=== PATIENT | female | born 1945 | race Hispanic/Latino ===

== ENCOUNTER 2018-10-17 11:31 | Inpatient (IN) | payer OTHER ==
[~2018-10-17] VITALS: Ht 162.6 cm; Wt 73.0 kg
[~2018-10-17 11:31] MED LIST: FENOFIBRATE145 MG PO; LEVOTHYROXINE75 MCG PO; METOPROLOL TART25 MG PO; NEURONTIN600 MG PO; NEXIUM40 MG PO; OXYBUTYNIN CHLOR5 MG PO; OXYCONTIN10 MG PO
--- OUTSIDE RECORDS SUMMARY | 2018-10-17 11:34 | XMS REPORT | Clinical Summary ---
Author Author GILBERTO [facility] Address Unknown Phone Unavailable Care Team Providers Care Termite Technician Name Role Phone Patrick Wu MD PCP Unavailable Allergies No Known Allergies Medications End Date Status Medication Sig Dispensed Refills Start Date Active metoprolol (LOPRESSOR) 50 Take 25 mg by 0 MG tabletIndications: mouth daily. hypertension Pt takes 1/4 pill daily Active gabapentin (NEURONTIN) Take 300 mg 0 100 MG by mouth 2 capsuleIndications: (two) times Neuropathic Pain daily. Active levothyroxine (SYNTHROID, Take 50 mcg 0 LEVOTHROID) 50 MCG by mouth tabletIndications: daily. hypothyroidism Active oxybutynin (DITROPAN XL) Take 10 mg by 0 10 MG 24 hr tablet mouth daily. Active fluticasone (FLONASE) 50 1 spray by 0 mcg/actuation nasal spray Nasal route daily. Active esomeprazole (NEXIUM) 40 Take 40 mg by 0 MG capsule mouth daily. Active lidocaine (LIDODERM) 5 Place 1 patch 0 %(700 mg/patch) patch onto the skin daily Remove & Discard patch within 12 hours or as directed by MD . Active anastrozole (ARIMIDEX) 1 Take 1 mg by 0 mg tablet mouth daily. Active buPROPion (WELLBUTRIN XL) Take 150 mg 0 150 MG 24 hr tablet by mouth daily. Active desloratadine (CLARINEX) Take 5 mg by 0 5 mg tablet mouth daily. Active diclofenac 1 % Gel Apply 0 topically 4 (four) times daily. Active ranitidine (ZANTAC) 150 Take 150 mg 0 MG capsule by mouth 2 (two) times daily. Active rOPINIRole (REQUIP) 0.25 Take 0.25 mg 0 MG tablet by mouth 3 (three) times daily. Active simvastatin (ZOCOR) 20 MG Take 20 mg by 0 tablet mouth nightly. Active temazepam (RESTORIL) 15 Take 15 mg by 0 mg capsule mouth every night as needed for Sleep. Active tiZANidine (ZANAFLEX) 4 Take 4 mg by 0 MG tablet mouth every 6 (six) hours as needed. Active docusate sodium (COLACE) Take 1 60 capsule 0 100 MG capsule capsule (100 6 mg total) by mouth 2 (two) times daily. 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 Last Filed Vital Signs Not on file Plan of Treatment Health Maintenance Due Date Last Done Comments INFLUENZA VACCINE 11/07/2017 Results Not on fileafter 10/16/2017 Insurance Payer Benefit Subscriber ID Type Phone Address Plan / Group [facility] xxxxxxxxx MEDICARE MGD CARE MEDICARE HMO Advance Directives For more information, please contact: [facility] [address] [place] [address] Date Inactivated Comments Code Status Date Activated 06/25/2015 2:14 PM Full Code 06/25/2015 6:45 AM This code status was determined by: Patient 03/17/2015 7:54 AM Full Code 03/13/2015 11:08 AM This code status was determined by: Patient
--- OUTSIDE RECORDS SUMMARY | 2018-10-17 11:34 | XMS REPORT | Clinical Summary ---
Author Author [facility] Organization [facility] Address Unknown Phone Unavailable Care Team Providers Care Director Surgical Name Role Phone Unknown, Phys PCP Unavailable Allergies No Known Allergies Medications End Date Status Medication Sig Dispensed Refills Start Date Active metoprolol succinate XL Take 25 mg by 0 (TOPROL-XL) 25 MG 24 hr mouth every tablet morning. Active ammonium lactate Apply 0 (AMLACTIN) 12 % cream topically 2 (two) times a day. Active anastrozole (ARIMIDEX) 1 Take 1 mg by 0 mg chemo tablet mouth daily. Active buPROPion SR (WELLBUTRIN Take 150 mg 0 SR) 150 MG 12 hr tablet by mouth daily. Active clotrimazole-betamethason Apply 0 e (LOTRISONE) cream topically 2 (two) times a day. Active desloratadine (CLARINEX) Take 5 mg by 0 5 mg tablet mouth daily. Active diclofenac (VOLTAREN) 1 % Apply 0 gel topically 2 (two) times a day as needed. Active esomeprazole (NexIUM) 40 Take 40 mg by 0 MG capsule mouth daily before breakfast. Active gabapentin (NEURONTIN) Take 600 mg 0 600 MG tablet by mouth 3 (three) times a day. Active ketoconazole (NIZORAL) 2 Apply 0 % cream topically daily. Active levothyroxine (SYNTHROID, Take 88 mcg 0 LEVOTHROID) 88 MCG tablet by mouth every morning. Active lidocaine (LIDODERM) 5 % Place 1 patch 0 on the skin daily. Remove & Discard patch within 12 hours or as directed by MD Active rOPINIRole (REQUIP) 0.25 Take 0.5 mg 0 MG tablet by mouth nightly. Active simvastatin (ZOCOR) 20 MG Take 20 mg by 0 tablet mouth nightly. Active temazepam (RESTORIL) 15 Take 30 mg by 0 mg capsule mouth nightly as needed for sleep. Active tiZANidine (ZANAFLEX) 4 Take 4 mg by 0 MG tablet mouth every 6 (six) hours as needed for muscle spasms. Active Problems Problem Noted Date Renal mass 12/24/2015 Social History Date Tobacco Use Types Packs/Day Years Used Never Smoker Drinks/Week oz/Week Comments Alcohol Use No Sex Assigned at Date Recorded Not on file Industry Job Start Date Occupation Not on file Not on file Not on file Travel End Travel History Travel Start No recent travel history available. Last Filed Vital Signs Not on file Plan of Treatment Health Maintenance Due Date Last Done Comments BREAST CANCER SCREENING 1994 COLONOSCOPY SCREENING 1994 SHINGLES VACCINES (#1) 1994 INFLUENZA VACCINE 09/07/2018 10/10/2015, 03/24/2015, 10/02/2014, Additional history exists 65+ PNEUMOCOCCAL VACCINE Completed 12/12/2014, 10/03/2013 Results Not on fileafter 10/16/2017 Insurance Type Payer Benefit Subscriber ID Effective Phone Address Plan / Dates Group HMO [employer] xxxxxxxxx 2015-P [facility] resent Medicaid MEDICAID MEDICAID xxxxxxxxx [id number] resent Advance Directives For more information, please contact: [phone] Patient Associate Producer Explanation Type Date Recorded Advance Directives, Living Will and Medical Power of Price Changer Date Inactivated Comments Code Status Date Activated 12/25/2015 3:19 PM Full Code 12/24/2015 4:44 PM Code Status decision reached by: Patient
--- OUTSIDE RECORDS SUMMARY | 2018-10-17 11:35 | XMS REPORT | Encounter Summary ---
Author Organization Unknown Address [address] [place] [address] Phone [phone] Care Team Providers Care Human Performance Technologist Name Role Phone Dr. Johnny Rodriguez 3 [phone] Freddie [facility] 109 [phone] Reason for Visit lab follow-up Instructions 1. Vitamin D deficiency Vitamin D2 50,000 unit capsule 2. Hypothyroidism 3. Insomnia temazepam 15 mg capsule 4. Body mass index 30+ - obesity aprenda acerca del peso saludable - [learning about healthy weight] ndice de masa corporal: instrucciones de cuidado - [body mass index: care instructions] Discussion Note: None recorded. Plan of Care Reminders Provider Appointments None recorded. Lab None recorded. Referral None recorded. Procedures None recorded. Surgeries None recorded. Imaging None recorded. Medications Name Start Date anastrozole 1 mg tablet Take 1 tablet every day by oral route as directed for 30 days. bupropion HCl SR 150 mg tablet,12 hr sustained-release Take 1 tablet every day by oral route for 90 days. diclofenac 1 % topical gel Apply 1 g twice a day by topical route as needed. esomeprazole magnesium 40 mg capsule,delayed release TAKE ONE CAPSULE BY MOUTH EVERY DAY fenofibrate nanocrystallized 145 mg tablet Take 1 tablet every day by oral route for 90 days. fluticasone propionate 50 mcg/actuation nasal spray,suspension SHAKE LIQUID AND USE 1 SPRAY IN EACH NOSTRIL TWICE DAILY FOR 14 DAYS DIRECTED gabapentin 600 mg tablet Take 1 tablet 3 times a day by oral route as directed for 90 days. levothyroxine 88 mcg tablet Take 1 tablet every day by oral route for 90 days. lidocaine 5 % topical patch APPLY 1 PATCH(S) TOPICALLY TWICE A DAY NEEDED meloxicam 15 mg tablet Take 1 tablet every day by oral route as needed for 30 days. metoprolol succinate ER 25 mg tablet,extended release 24 hr Take 1 tablet every day by oral route for 90 days. oxybutynin chloride ER 10 mg tablet,extended release 24 hr Take 1 tablet every day by oral route. ProAir HFA 90 mcg/actuation aerosol inhaler Inhale 2 puffs every 6-8 hours by inhalation route as needed for 10 days. ropinirole 0.25 mg tablet Take 2 tablets every day by oral route in the evening for 30 days. simvastatin 20 mg tablet TAKE 1 TABLET BY MOUTH EVERY DAY temazepam 15 mg capsule TAKE 1 CAPSULE BY MOUTH NEEDED AT BEDTIME Tessalon Perles 100 mg capsule Take 1 capsule 3 times a day by oral route as needed for 10 days. triamcinolone acetonide 0.5 % topical ointment APPLY A THIN LAYER TO THE AFFECTED AREA(S) BY TOPICAL ROUTE 2 TIMES PER DAY FOR UP TO 2 WEEKS Tylenol-Codeine #3 300 mg-30 mg tablet Take 1 tablet twice a day by oral route as needed for 10 days. Vitamin D2 50,000 unit capsule Take 1 capsule every week by oral route as directed for 56 days. Medications Administered None recorded. Vitals Height Weight BMI Blood Pressure 5 ft 0.6 in 160 lbs 30.6 kg/m2 138/88 mm[Hg] Lab Results Date Name Specimen Result Interpretation Description Value Range Status Address 04/27/2018 Hepatitis C Virus RNA, Quant, PCR, Serum or Plasma Normal Hepatitis C Antibody non-reactive non-reactive [facility]: [address] [place] [address] Normal Signal to Cut-off 0.01 <1.00 [facility]: [address] [place], [place] [address]y linus [address] 04/27/2018 CBC W/ Auto Diff Wbc 4.69 x10*3/L 3.98-10.04 x10*3/L [facility]: [address] [place] [address] Rbc 4.09 10*12/L 3.93-5.22 10*12/L [facility]: [facility] Jennifer linus [address] Hemoglobin 12.10 g/dL 11.20-15.70 g/dL [facility]: [address] [place] [address] Hematocrit 37.4 % 34.1-44.9 % [facility]: [address] [place] [address] Mcv 91.4 fL 80.0-100.0 fL [facility]: [address] [place] [address], [place] Mch 29.6 pg 25.6-32.2 pg [facility]: [address] [place] Mchc 32.4 g/dL 32.2-35.5 g/dL [facility]: [address] [facility] RDW-SD 51.5 fL 36.4-46.3 fL [facility]: [address] [place] Platelet Count 218.0 k/uL 182.0-369.0 k/uL [facility]: [address] [facility] Mpv 11.6 fL 7.5-11.5 fL [facility]: [address] [place] Neut% 42.5 % 34.0-71.1 % [facility]: [address] [place] Lymph% 40.7 % 19.3-51.7 % [facility]: [address] [facility] Mon% 15.1 % 4.7-12.5 % [facility]: [address] [place] Eos% 1.3 % 0.7-5.8 % [facility]: [address] [place] Baso% 0.4 % 0.1-1.2 % [facility]: [address] [place] Neut# 2.0 x10*3/L 1.6-6.1 x10*3/L [facility] [address] [facility]# 1.9 x10*3/L 1.2-3.7 x10*3/L [facility]: [address], [place] Mon# 0.7 x10*3/L 0.2-0.9 x10*3/L [facility]: [address], [place] Eos# 0.06 x10*3/L 0.04-0.36 x10*3/L [facility] [address] [facility] Baso# 0.02 x10*3/L 0.01-0.08 x10*3/L [facility] [address] [facility] 04/27/2018 CMP, Serum or Plasma Alt 24 U/L 0-55 U/L [facility]: [address] Ast 21 U/L 5-34 U/L [facility]: [address] [place] [address] Bun 16.2 mg/dL 9.8-20.1 mg/dL [facility]: [address] [place] [address], [place] Alk Phos 91 unit/L 40-150 unit/L [facility]: [address] [place] [address] High Glucose 103 mg/dL 70-99 mg/dL [facility]: [address] Albumin 3.9 g/dL 3.5-5.0 g/dL [facility]: [address] Creatinine 0.82 mg/dL 0.57-1.11 mg/dL [facility]: [address] eGFR Non- >60 mL/min/1.73m2 [facility]: [address] Total Bilirubin 0.9 mg/dL 0.2-1.2 mg/dL [facility]: [address] eGFR - >60 mL/min/1.73m2 [facility]: [address] Sodium 143 mEq/L 136-145 mEq/L [facility]: [address] Potassium 3.8 mEq/L 3.5-5.1 mEq/L [facility]: [address] Chloride 104 mmol/L 98-107 mmol/L [facility]: [address] Total Protein 6.9 g/dL 6.4-8.3 g/dL [facility]: [address] Calcium 9.6 mg/dL 8.4-10.2 mg/dL [facility]: [address] [place] [address] Co2 29.4 mmol/L 23.0-31.0 mmol/L [facility]: [address] [place] [address], [place] Anion Gap 10 calc [facility]: [address] [place] [address], [place] 04/27/2018 TSH, Serum or Plasma Low Tsh 0.142 uIU/mL 0.350-4.940 uIU/mL [facility]: [address] [place] [address], [place] 04/27/2018 Vitamin D, 25-Hydroxy, Total, Serum Low Vitamin D 25OH 16.6 NG/mL 30.0-96.0 NG/mL [facility]: [address] [place] [address], [place] 04/05/2018 Urinalysis, Dipstick Color Color yellow [facility] ([facility]) [place]: [address] [place] Color Appearance clear [facility] ([facility]) [place]: [address] [place] Glucose negative [facility] ([facility]) [place]: [address] [place] Bilirubin negative [facility] ([facility]) [place]: [address] [place] Ketones negative [facility] ([facility]) [place]: [address] [place] Color Specific [place] 1.010 [facility] ([facility]) [place]: [address] [place] Blood negative [facility] [place]: [address] [place] PH 6.0 [facility] [place]: [address] [place] Protein negative [facility] ([facility] [place]: [address] [place] Urobilinogen 0.2 [facility] [place]: [address] [place] Nitrites negative [facility] ([facility]) [place]: [address] [place] Leukocytes negative [facility] ([facility]) [place]: [address] [place] Allergies Code Code System Name Reaction Severity Status Onset 71329 RxNorm Tizanidine Active 98831 RxNorm Trazodone Active Problems Name Status Onset Date Source 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 External Postherpetic Neuralgia Active 04/17/2012 External Depressive Disorder Active 04/17/2012 Hearing Loss Active 04/17/2012 External Colitis Active 04/17/2012 External Malignant Neoplasm of Female Breast Active 06/11/2014 External Incisional Hernia Active 06/25/2015 External Renal Mass Active 06/25/2015 External Hypothyroidism Active 08/29/2017 Hyperlipidemia Active 08/29/2017 Hypertensive Disorder Active 08/29/2017 Gastroesophageal Reflux Disease Active 08/29/2017 Urge Incontinence of Urine Active 08/29/2017 History of Malignant Neoplasm of Breast Active 08/29/2017 History of non-Hodgkins Lymphoma Active 08/29/2017 Procedures Date Name Performed by 02/07/2013 Hernia Repair Information not available 02/08/2012 Colonoscopy Information not available Vaccine List Vaccine Type influenza, high dose seasonal 03/08/20180.5 mL pneumococcal conjugate PCV 13 08/29/20170.5 mL pneumococcal, unspecified formulation 02/07/2015 zoster 02/07/2014 Social History Smoking Status Never Smoker Past Encounters 05/01/2018 Vitamin D Deficiency; Hypothyroidism; Insomnia; Body Mass Index 30+ - Obesity Johnny Vargas MD: [address] [place] [address], Ph. 04/27/2018 Upper Respiratory Infection; Acute Bronchospasm; Fatigue; Screening for Disorder; Pain in Throat Johnnyromero Vargas MD: [address] [place] [address], Ph. 04/05/2018 Lumbar Spondylosis; Low Back Pain; Neck Pain; Localized Eruption of Skin; Hypertensive Disorder; Hypothyroidism; Urinary Incontinence; Restless Legs; Depression Screening; Alcohol Consumption Screening; Screening for Disorder Johnny Vargas MD: [address] [place] [address], Ph. History of Present Illness Note:Coming to discuss lab results. Review of Systems Comprehensive General Adult ROS Reported By: Patient Eyes: Eyes: no vision change Cardiovascular: Cardiovascular: no chest pain, no palpitations, no lightheadedness Respiratory: Respiratory: no cough, no wheezing, no shortness of breath Gastrointestinal: Gastrointestinal: no abdominal pain, no nausea, no vomiting, no constipation, no diarrhea Musculoskeletal: Musculoskeletal: no muscle aches, no swelling in the extremities Neurologic: Neurologic: no loss of consciousness, no headaches Psychiatric: Psych: no depression, no alcohol abuse, no anxiety, no suicidal thoughts Endocrine: Endocrine: fatigue Physical Exam General Adult Exam (male) Reported By: Patient Constitutional: General Appearance: healthy-appearing, obese. Level of Distress: NAD. Ambulation: ambulating normally Psychiatric: Insight: good judgement. Mental Status: active and alert, normal mood, normal affect. Orientation: to time, to place, to person. Memory: recent memory normal, remote memory normal Eyes: Lids and Conjunctivae: non-injected, no discharge ENMT: Lips, Teeth, and Gums: no mouth or lip ulcers. Oropharynx: moist mucous membranes Neck: Neck: supple Lungs: Auscultation: breath sounds normal Cardiovascular: Heart Auscultation: RRR, normal S1, normal S2, no murmurs Neurologic: Gait and Station: normal gait. Coordination and Cerebellum: no tremor
--- OUTSIDE RECORDS SUMMARY | 2018-10-17 11:35 | XMS REPORT | Continuity of Care Document ---
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 Role Phone [employer] Unavailable Unavailable Problems Problem Status Onset Date Classification Date Reported Comments Source Hyperpigmentation of skin 05/19/2018 Diagnosis 05/23/2018 [facility] Insomnia 05/01/2018 Diagnosis 05/23/2018 [facility] Vitamin D deficiency 05/01/2018 Diagnosis 05/23/2018 [facility] Body mass index 30+ - obesity 05/01/2018 Diagnosis 05/23/2018 [facility] Fatigue 04/27/2018 Diagnosis 05/23/2018 [facility] Acute bronchospasm 04/27/2018 Diagnosis 05/23/2018 [facility] Upper respiratory infection 04/27/2018 Diagnosis 05/23/2018 [facility] Pain in throat 04/27/2018 Diagnosis 05/23/2018 [facility] Screening for disorder 04/27/2018 Diagnosis 05/23/2018 [facility] Restless legs 04/05/2018 Diagnosis 05/01/2018 [facility] Urinary incontinence 04/05/2018 Diagnosis 05/01/2018 [facility] Hypertensive disorder 04/05/2018 Diagnosis 05/01/2018 [facility] Neck pain 04/05/2018 Diagnosis 05/01/2018 [facility] Low back pain 04/05/2018 Diagnosis 05/01/2018 [facility] Lumbar spondylosis 04/05/2018 Diagnosis 05/01/2018 [facility] Localized eruption of skin 04/05/2018 Diagnosis 05/01/2018 [facility] Alcohol consumption screening 04/05/2018 Diagnosis 05/01/2018 [facility] Depression screening 04/05/2018 Diagnosis 05/01/2018 [facility] Acute urinary tract infection 03/08/2018 Diagnosis 04/06/2018 [facility] Lumbago with sciatica 03/08/2018 Diagnosis 04/06/2018 [facility] Senile purpura 03/08/2018 Diagnosis 04/06/2018 [facility] Gastroesophageal reflux disease 03/08/2018 Diagnosis 04/06/2018 [facility] Immunization 03/08/2018 Diagnosis 04/06/2018 [facility] Contact dermatitis 02/14/2018 Diagnosis 03/09/2018 [facility] Sciatica 02/14/2018 Diagnosis 03/09/2018 [facility] Depressive disorder 02/14/2018 Diagnosis 03/09/2018 [facility] Malignant neoplasm of female breast 02/14/2018 Diagnosis 03/09/2018 [facility] Screening for osteoporosis 02/14/2018 Diagnosis 03/09/2018 [facility] Hypothyroidism 08/29/2017 Problem 05/23/2018 [facility] Hyperlipidemia 08/29/2017 Problem 05/23/2018 [facility] Hypertensive Disorder 08/29/2017 Problem 05/23/2018 [facility] Gastroesophageal Reflux Disease 08/29/2017 Problem 05/23/2018 [facility] Urge Incontinence of Urine 08/29/2017 Problem 05/23/2018 [facility] History of Malignant Neoplasm of Breast 08/29/2017 Problem 05/23/2018 [facility] History of non-Hodgkins Lymphoma 08/29/2017 Problem 05/23/2018 [facility] Incisional Hernia 06/25/2015 Problem 05/23/2018 [facility] Renal Mass 06/25/2015 Problem 05/23/2018 [facility] Malignant Neoplasm of Female Breast 06/11/2014 Problem 05/23/2018 [facility] Postherpetic Neuralgia 04/17/2012 Problem 05/23/2018 [facility] Depressive Disorder 04/17/2012 Problem 05/23/2018 [facility] Hearing Loss 04/17/2012 Problem 05/23/2018 [facility] Colitis 04/17/2012 Problem 05/23/2018 [facility] Follicular non-Hodgkin's Lymphoma 03/29/2012 Problem 05/23/2018 [facility] Medications Medication Details Route Status Patient Instructions Ordering Provider Order Date Source anastrozole 1 MG Oral Tablet anastrozole 1 mg tablet Take 1 tablet every day by oral route as directed for 30 days. Active [facility] 12 HR Bupropion Hydrochloride 150 MG Extended Release Oral Tablet bupropion HCl SR 150 mg tablet,12 hr sustained-release Take 1 tablet every day by oral route for 90 days. Active [facility] Esomeprazole 40 MG Delayed Release Oral Capsule esomeprazole magnesium 40 mg capsule,delayed release TAKE ONE CAPSULE BY MOUTH EVERY DAY Active [facility] Fenofibrate 145 MG Oral Tablet fenofibrate nanocrystallized 145 mg tablet Take 1 tablet every day by oral route for 90 days. Active [facility] gabapentin 600 MG Oral Tablet gabapentin 600 mg tablet Take 1 tablet 3 times a day by oral route as directed for 90 days. Active [facility] Cephalexin 500 MG Oral Capsule [Keflex] Keflex 500 mg capsule Take 1 capsule every 8 hours by oral route as directed for 10 days. Active [facility] 2 ML Ketorolac Tromethamine 30 MG/ML Injection ketorolac 60 mg/2 mL intramuscular solution Inject 2 mL as needed by intramuscular route. Active [facility] Levothyroxine Sodium 0.088 MG Oral Tablet levothyroxine 88 mcg tablet Take 1 tablet every day by oral route for 90 days. Active [facility] Lidocaine 0.05 MG/MG Medicated Patch lidocaine 5 % topical patch APPLY 1 PATCH(S) TOPICALLY TWICE A DAY NEEDED Active [facility] meloxicam 15 MG Oral Tablet meloxicam 15 mg tablet Take 1 tablet every day by oral route as needed for 30 days. Active [facility] 24 HR metoprolol succinate 25 MG Extended Release Oral Tablet metoprolol succinate ER 25 mg tablet,extended release 24 hr Take 1 tablet every day by oral route for 90 days. Active [facility] 24 HR Oxybutynin chloride 10 MG Extended Release Oral Tablet oxybutynin chloride ER 10 mg tablet,extended release 24 hr Take 1 tablet every day by oral route. Active [facility] ropinirole 0.25 MG Oral Tablet ropinirole 0.25 mg tablet Take 2 tablets every day by oral route in the evening for 30 days. Active [facility] Simvastatin 20 MG Oral Tablet simvastatin 20 mg tablet TAKE 1 TABLET BY MOUTH EVERY DAY Active [facility] tizanidine 2 MG Oral Tablet tizanidine 2 mg tablet Take 1 tablet as needed by oral route at bedtime for 14 days. Active [facility] Triamcinolone Acetonide 0.005 MG/MG Topical Ointment triamcinolone acetonide 0.5 % topical ointment APPLY A THIN LAYER TO THE AFFECTED AREA(S) BY TOPICAL ROUTE 2 TIMES PER DAY FOR UP TO 2 WEEKS Active [facility] Acetaminophen 300 MG / Codeine Phosphate 30 MG Oral Tablet [Tylenol with Codeine] Tylenol-Codeine #3 300 mg-30 mg tablet Take 1 tablet twice a day by oral route as needed for 10 days. Active [facility] Diclofenac Sodium 0.01 MG/MG Topical Gel diclofenac 1 % topical gel Apply 1 g twice a day by topical route as needed. Active [facility] Fluticasone propionate 0.05 MG/ACTUAT Metered Dose Nasal Bend fluticasone propionate 50 mcg/actuation nasal spray,suspension SHAKE LIQUID AND USE 1 SPRAY IN EACH NOSTRIL TWICE DAILY FOR 14 DAYS DIRECTED Active [facility] Triamcinolone Acetonide 40 MG/ML Injectable Suspension [Kenalog] Kenalog 40 mg/mL suspension for injection Take 1 mL by injection route. Active [facility] 200 ACTUAT Albuterol 0.09 MG/ACTUAT Metered Dose Inhaler [ProAir] ProAir HFA 90 mcg/actuation aerosol inhaler Inhale 2 puffs every 6-8 hours by inhalation route as needed for 10 days. Active [facility] Temazepam 15 MG Oral Capsule temazepam 15 mg capsule TAKE 1 CAPSULE BY MOUTH NEEDED AT BEDTIME Active [facility] benzonatate 100 MG Oral Capsule [Tessalon Perles] Tessalon Perles 100 mg capsule Take 1 capsule 3 times a day by oral route as needed for 10 days. Active [facility] Azithromycin 250 MG Oral Tablet Zithromax Z-Adalberto 250 mg tablet TAKE 2 TABLETS (500 MG) BY ORAL ROUTE ONCE DAILY FOR 1 DAY THEN 1 TABLET (250 MG) BY ORAL ROUTE ONCE DAILY FOR 4 DAYS Active [facility] Ergocalciferol 93273 UNT Oral Capsule Vitamin D2 50,000 unit capsule Take 1 capsule every week by oral route as directed for 56 days. Active [facility] Alprazolam 0.25 MG Oral Tablet alprazolam 0.25 mg tablet Take 1 tablet as needed by oral route at bedtime for 20 days. Active [facility] Alprazolam 0.5 MG Oral Tablet alprazolam 0.5 mg tablet Take 1 tablet as needed by oral route at bedtime for 30 days. Active [facility] Allergies, Adverse Reactions, Alerts Substance Category Reaction Severity Reaction type Status Date Reported Comments Source Trazodone Allergy to substance 08/29/2017 [facility] Tizanidine Allergy to substance 04/05/2018 [facility] Immunizations Immunization Date Given Site Status Last Updated Comments Source influenza, high dose seasonal 03/08/2018 completed [facility] pneumococcal conjugate PCV 13 08/29/2017 completed [facility] pneumococcal, unspecified formulation 02/07/2015 completed [facility] zoster 02/07/2014 completed [facility] Results Order Name Results Value Reference Range Date Interpretation Comments Source Hepatitis C virus RNA [Units/volume] (viral load) in Serum or Plasma by Probe and target amplification method hepatitis C antibody non-reactive non 04/28/2018 normal [facility] Hepatitis C virus RNA [Units/volume] (viral load) in Serum or Plasma by Probe and target amplification method signal to cut-off 0.01 <1.00 04/28/2018 normal [facility] Comprehensive metabolic 1999 panel - Serum or Plasma ALT 24 0 - 55 04/27/2018 [facility] Comprehensive metabolic 1999 panel - Serum or Plasma AST 21 5 - 34 04/27/2018 [facility] Comprehensive metabolic 1999 panel - Serum or Plasma BUN 16.2 9.8 - 20.1 04/27/2018 [facility] Comprehensive metabolic 1999 panel - Serum or Plasma alk phos 91 40 - 150 04/27/2018 [facility] Comprehensive metabolic 1999 panel - Serum or Plasma glucose 103 70 - 99 04/27/2018 high [facility] Comprehensive metabolic 1999 panel - Serum or Plasma albumin 3.9 3.5 - 5.0 04/27/2018 [facility] Comprehensive metabolic 1999 panel - Serum or Plasma creatinine 0.82 0.57 - 1.11 04/27/2018 [facility] Comprehensive metabolic 1999 panel - Serum or Plasma eGFR non- >60 04/27/2018 [facility] Comprehensive metabolic 1999 panel - Serum or Plasma total bilirubin 0.9 0.2 - 1.2 04/27/2018 [facility] Comprehensive metabolic 1999 panel - Serum or Plasma eGFR - >60 04/27/2018 [facility] Comprehensive metabolic 1999 panel - Serum or Plasma sodium 143 136 - 145 04/27/2018 [facility] Comprehensive metabolic 1999 panel - Serum or Plasma potassium 3.8 3.5 - 5.1 04/27/2018 [facility] Comprehensive metabolic 1999 panel - Serum or Plasma chloride 104 98 - 107 04/27/2018 [facility] Comprehensive metabolic 1999 panel - Serum or Plasma total protein 6.9 6.4 - 8.3 04/27/2018 [facility] Comprehensive metabolic 1999 panel - Serum or Plasma calcium 9.6 8.4 - 10.2 04/27/2018 [facility] Comprehensive metabolic 1999 panel - Serum or Plasma CO2 29.4 23.0 - 31.0 04/27/2018 [facility] Comprehensive metabolic 1999 panel - Serum or Plasma anion gap 10 04/27/2018 [facility] CBC W Auto Differential panel - Blood WBC 4.69 3.98 - 10.04 04/27/2018 [facility] CBC W Auto Differential panel - Blood RBC 4.09 3.93 - 5.22 04/27/2018 [facility] CBC W Auto Differential panel - Blood hemoglobin 12.10 11.20 - 15.70 04/27/2018 [facility] CBC W Auto Differential panel - Blood hematocrit 37.4 34.1 - 44.9 04/27/2018 [facility] CBC W Auto Differential panel - Blood MCV 91.4 80.0 - 100.0 04/27/2018 [facility] CBC W Auto Differential panel - Blood MCH 29.6 25.6 - 32.2 04/27/2018 [facility] CBC W Auto Differential panel - Blood MCHC 32.4 32.2 - 35.5 04/27/2018 [facility] CBC W Auto Differential panel - Blood RDW-SD 51.5 36.4 - 46.3 04/27/2018 [facility] CBC W Auto Differential panel - Blood platelet count 218.0 182.0 - 369.0 04/27/2018 [facility] CBC W Auto Differential panel - Blood MPV 11.6 7.5 - 11.5 04/27/2018 [facility] CBC W Auto Differential panel - Blood neut% 42.5 34.0 - 71.1 04/27/2018 [facility] CBC W Auto Differential panel - Blood lymph% 40.7 19.3 - 51.7 04/27/2018 [facility] CBC W Auto Differential panel - Blood mon% 15.1 4.7 - 12.5 04/27/2018 [facility] CBC W Auto Differential panel - Blood eos% 1.3 0.7 - 5.8 04/27/2018 [facility] CBC W Auto Differential panel - Blood baso% 0.4 0.1 - 1.2 04/27/2018 [facility] CBC W Auto Differential panel - Blood neut# 2.0 1.6 - 6.1 04/27/2018 [facility] CBC W Auto Differential panel - Blood lymph# 1.9 1.2 - 3.7 04/27/2018 [facility] CBC W Auto Differential panel - Blood mon# 0.7 0.2 - 0.9 04/27/2018 [facility] CBC W Auto Differential panel - Blood eos# 0.06 0.04 - 0.36 04/27/2018 [facility] CBC W Auto Differential panel - Blood baso# 0.02 0.01 - 0.08 04/27/2018 [facility] 25-Hydroxyvitamin D [Mass/volume] in Serum or Plasma vitamin D 25OH 16.6 30.0 - 96.0 04/27/2018 [facility] Thyrotropin [Units/volume] in Serum or Plasma TSH 0.142 0.350 - 4.940 04/27/2018 low [facility] Strep negative 04/27/2018 [facility] Urinalysis macro (dipstick) panel - Urine Color Color yellow 04/05/2018 [facility] Urinalysis macro (dipstick) panel - Urine Color Appearance clear 04/05/2018 [facility] Urinalysis macro (dipstick) panel - Urine Color Glucose negative 04/05/2018 [facility] Urinalysis macro (dipstick) panel - Urine Color Bilirubin negative 04/05/2018 [facility] Urinalysis macro (dipstick) panel - Urine Color Ketones negative 04/05/2018 [facility] Urinalysis macro (dipstick) panel - Urine Color Specific [place] 1.010 04/05/2018 [facility] Urinalysis macro (dipstick) panel - Urine Color Blood negative 04/05/2018 [facility] Urinalysis macro (dipstick) panel - Urine Color PH 6.0 04/05/2018 [facility] Urinalysis macro (dipstick) panel - Urine Color Protein negative 04/05/2018 [facility] Urinalysis macro (dipstick) panel - Urine Color Urobilinogen 0.2 04/05/2018 [facility] Urinalysis macro (dipstick) panel - Urine Color Nitrites negative 04/05/2018 [facility] Urinalysis macro (dipstick) panel - Urine Color Leukocytes negative 04/05/2018 [facility] Urinalysis macro (dipstick) panel - Urine Color Color yellow 04/05/2018 [facility] Urinalysis macro (dipstick) panel - Urine Color Appearance clear 04/05/2018 [facility] Urinalysis macro (dipstick) panel - Urine Color Glucose negative 04/05/2018 [facility] Urinalysis macro (dipstick) panel - Urine Color Bilirubin negative 04/05/2018 [facility] Urinalysis macro (dipstick) panel - Urine Color Ketones negative 04/05/2018 [facility] Urinalysis macro (dipstick) panel - Urine Color Specific [place] 1.010 04/05/2018 [facility] Urinalysis macro (dipstick) panel - Urine Color Blood negative 04/05/2018 [facility] Urinalysis macro (dipstick) panel - Urine Color PH 6.0 04/05/2018 [facility] Urinalysis macro (dipstick) panel - Urine Color Protein negative 04/05/2018 [facility] Urinalysis macro (dipstick) panel - Urine Color Urobilinogen 0.2 04/05/2018 [facility] Urinalysis macro (dipstick) panel - Urine Color Nitrites negative 04/05/2018 [facility] Urinalysis macro (dipstick) panel - Urine Color Leukocytes negative 04/05/2018 [facility] Urinalysis complete W Reflex Culture panel - Urine color yellow yellow 03/09/2018 normal [facility] Urinalysis complete W Reflex Culture panel - Urine appearance cloudy clear 03/09/2018 abnormal [facility] Urinalysis complete W Reflex Culture panel - Urine specific gravity 1.014 1.001 - 1.035 03/09/2018 normal [facility] Urinalysis complete W Reflex Culture panel - Urine pH 7.0 5.0 - 8.0 03/09/2018 normal [facility] Urinalysis complete W Reflex Culture panel - Urine glucose negative negative 03/09/2018 normal [facility] Urinalysis complete W Reflex Culture panel - Urine bilirubin negative negative 03/09/2018 normal [facility] Urinalysis complete W Reflex Culture panel - Urine ketones negative negative 03/09/2018 normal [facility] Urinalysis complete W Reflex Culture panel - Urine occult blood negative negative 03/09/2018 normal [facility] Urinalysis complete W Reflex Culture panel - Urine protein negative negative 03/09/2018 normal [facility] Urinalysis complete W Reflex Culture panel - Urine nitrite positive negative 03/09/2018 abnormal [facility] Urinalysis complete W Reflex Culture panel - Urine leukocyte esterase 3+ negative 03/09/2018 abnormal [facility] Urinalysis complete W Reflex Culture panel - Urine WBC 20-40 < or=5 03/09/2018 abnormal [facility] Urinalysis complete W Reflex Culture panel - Urine RBC 0-2 < or=2 03/09/2018 normal [facility] Urinalysis complete W Reflex Culture panel - Urine squamous epithelial cells 0-5 < or=5 03/09/2018 [facility] Urinalysis complete W Reflex Culture panel - Urine bacteria many none seen 03/09/2018 abnormal [facility] Urinalysis complete W Reflex Culture panel - Urine hyaline cast none seen none seen 03/09/2018 normal [facility] Urinalysis complete W Reflex Culture panel - Urine comments few mucous threads 03/09/2018 [facility] Urinalysis complete W Reflex Culture panel - Urine reflexive urine culture culture indicated - results to follow 03/09/2018 [facility] Urinalysis macro (dipstick) panel - Urine Color Color yellow 03/08/2018 [facility] Urinalysis macro (dipstick) panel - Urine Color Appearance cloudy 03/08/2018 [facility] Urinalysis macro (dipstick) panel - Urine Color Glucose negative 03/08/2018 [facility] Urinalysis macro (dipstick) panel - Urine Color Bilirubin negative 03/08/2018 [facility] Urinalysis macro (dipstick) panel - Urine Color Ketones negative 03/08/2018 [facility] Urinalysis macro (dipstick) panel - Urine Color Specific [place] 1.015 03/08/2018 [facility] Urinalysis macro (dipstick) panel - Urine Color Blood negative 03/08/2018 [facility] Urinalysis macro (dipstick) panel - Urine Color PH 7.0 03/08/2018 [facility] Urinalysis macro (dipstick) panel - Urine Color Protein negative 03/08/2018 [facility] Urinalysis macro (dipstick) panel - Urine Color Urobilinogen 0.2 03/08/2018 [facility] Urinalysis macro (dipstick) panel - Urine Color Nitrites positive 03/08/2018 [facility] Urinalysis macro (dipstick) panel - Urine Color Leukocytes moderate 03/08/2018 [facility] Pathology Reports No Data Provided for This Section Diagnostic Reports No Data Provided for This Section Consultation Notes No Data Provided for This Section Discharge Summaries No Data Provided for This Section History and Physicals No Data Provided for This Section Vital Signs Vital Sign Value Date Comments Source Diastolic (mm Hg) 80 05/19/2018 [facility] Height 60.6 05/19/2018 [facility] Systolic (mm Hg) 134 05/19/2018 [facility] Weight 160 05/19/2018 [facility] Diastolic (mm Hg) 88 05/01/2018 [facility] Height 60.6 05/01/2018 [facility] Systolic (mm Hg) 138 05/01/2018 [facility] Weight 160 05/01/2018 [facility] Diastolic (mm Hg) 82 04/27/2018 [facility] Height 60.6 04/27/2018 [facility] Systolic (mm Hg) 126 04/27/2018 [facility] Diastolic (mm Hg) 82 04/05/2018 [facility] Height 60.6 04/05/2018 [facility] Systolic (mm Hg) 138 04/05/2018 [facility] Diastolic (mm Hg) 70 03/08/2018 [facility] Height 60.6 03/08/2018 [facility] Systolic (mm Hg) 108 03/08/2018 [facility] Encounters Location Location Details Encounter Type Encounter Number Reason For Visit Attending Provider ADM Date DC Date Status Source Outpatient [id number] NANCY PALMER 02/19/2016 Active [facility] [id number] [facility] 02/26/2016 Active [facility] [id number] [facility] 03[facility]08/2016 Active [facility] [id number] [facility] 03[facility]19/2016 Active [facility] [id number] [facility] 04/13/2016 Active [facility] [id number] [facility] 04/13/2016 Active [facility] [id number] [facility] 05/04/2016 Active [facility] [id number] [facility] 05[facility]10/2016 Active [facility] [id number] [facility] 05[facility]13/2016 Active [facility] [id number] [facility] 05/21/2016 Active [facility] [id number] [facility] 06/04/2016 Active [facility] [id number] [facility] 06/08/2016 Active [facility] [id number] [facility] 10/25/2017 Active [facility] [place] [facility] Johnny Vargas MD: [id number] [place] [address], Ph. [id number] Johnny Vargas 02/14/2018 [facility] [place] [facility] Johnny A. Michael Vargas MD: [address] [place] [address], Ph. [id number] Johnny Rodriguez Sam 03/08/2018 [facility] [place] [facility] Johnny A. Michael Vargas MD: [address] [place] [address], Ph. [id number] Johnny Vargas 03/08/2018 [facility] [place] [facility] Johnny A. Michael Vargas MD: [address] [place] [address], Ph. [id number] Johnny Vargas 04/05/2018 [facility] [place] [facility] Johnny A. Michael Vargas MD: [address] [place] [address], Ph. [id number] Johnnybrigitte Vargas 04/05/2018 [facility] [place] [facility] Johnny A. Michael Vargas MD: [address] [place] [address], Ph. [id number] Johnny Vargas 04/05/2018 [facility] [place] [facility] Johnny A. Michael Vargas MD: [address] [place] [address], Ph. [id number] Johnnyromero Rodriguez Sam 04/27/2018 [facility] [place] [facility] - [facility] Johnny A. Michael Vargas MD: [address] [place] [address], Ph. [id number] Johnny Rodriguez Sam 04/27/2018 [facility] [place] [facility] - [facility] Johnny A. Michael Vargas MD: [address] [place] [address], Ph. [id number] Johnny Rodriguez Sam 04/27/2018 [facility] [place] [facility] Johnny A. Michael Vargas MD: [address] [place] [address], Ph. [id number] Johnnyromero Vargas 05/01/2018 [facility] - [facility] Johnny A. Michael Vargas MD: [address] [place] [address], Ph. [id number] Johnny Rodriguez Sam 05/01/2018 [facility] [place] [facility] Johnny A. Michael Vargas MD: [address] [place] [address], Ph. [id number] Johnny Vargas 05/19/2018 [facility] Procedures Procedure Code Date Perfomer Comments Source bone density 02/22/2018 [facility] Hernia Repair 02/07/2013 [facility] Colonoscopy 02/08/2012 [facility] Assessment and Plan No Data Provided for This Section Plan of Care No Data Provided for This Section Social History Social History Date Source Smoking Status Never Smoker 08/29/2017 [facility] Family History No Data Provided for This Section Advance Directives No Data Provided for This Section Functional Status No Data Provided for This Section
--- OUTSIDE RECORDS SUMMARY | 2018-10-17 11:35 | XMS REPORT | Encounter Summary ---
Author Organization Unknown Address [address] [place] [address] Phone [phone] Care Team Providers Care Custom Car Builder Name Role Phone Dr. Johnny Rodriguez 3 [phone] [facility] 109 [phone] Reason for Visit Left low back pain; Left shoulder pain Instructions 1. Lumbar spondylosis pain management referral - QATARI SPEAKING PLEASE CALL PATIENT AND SCHEDULE HER AN APPOINTMENT. PLEASE FAX NOTES TO [phone]. lidocaine 5 % topical patch Tylenol-Codeine #3 300 mg-30 mg tablet meloxicam 15 mg tablet 2. Low back pain urinalysis, dipstick 3. Neck pain 4. Localized eruption of skin dermatology referral - QATARI SPEAKING PLEASE CALL PATIENT AND SCHEDULE HER AN APPOINTMENT. PLEASE FAX NOTES TO [phone]. 5. Hypertensive disorder metoprolol succinate ER 25 mg tablet,extended release 24 hr 6. Hypothyroidism levothyroxine 88 mcg tablet 7. Urinary incontinence oxybutynin chloride ER 10 mg tablet,extended release 24 hr 8. Restless legs ropinirole 0.25 mg tablet 9. Depression screening learning about depression 10. Alcohol consumption screening learning about alcohol misuse 11. Screening for disorder hepatitis C virus RNA, quant, PCR, serum or plasma Discussion Note: None recorded. Plan of Care Reminders Provider Appointments Return to Office on or around 07/03/2018 Johnny Vargas MD Lab Hepatitis C Virus RNA, Quant, PCR, Serum or Plasma 04/05/2018 [facility] Urinalysis, Dipstick 04/05/2018 [facility] ([facility] [place] Referral Dermatology Referral 04/05/2018 Nolan Alexandra MD Pain Management Referral 04/05/2018 Román Marcelo MD Procedures None recorded. Surgeries None recorded. Imaging [...] day by oral route for 90 days. gabapentin 600 mg tablet Take 1 tablet 3 times a day by oral route as directed for 90 days. levothyroxine 88 mcg tablet Take 1 tablet every day by oral route for 90 days. lidocaine 5 % topical patch Apply 1 patch twice a day by topical route as needed for 30 days. meloxicam 15 mg tablet Take 1 tablet every day by oral route as needed for 30 days. metoprolol succinate ER 25 mg tablet,extended release 24 hr Take 1 tablet every day by oral route for 90 days. oxybutynin chloride ER 10 mg tablet,extended release 24 hr Take 1 tablet every day by oral route. ropinirole 0.25 mg tablet Take 2 tablets every day by oral route in the evening for 30 days. simvastatin 20 mg tablet Take 1 tablet every day by oral route. triamcinolone acetonide 0.5 % topical ointment APPLY A THIN LAYER TO THE AFFECTED AREA(S) BY TOPICAL ROUTE 2 TIMES PER DAY FOR UP TO 2 WEEKS Tylenol-Codeine #3 300 mg-30 mg tablet Take 1 tablet twice a day by oral route as needed for 10 days. Medications Administered None recorded. Vitals Height Weight BMI Blood Pressure 5 ft 0.6 in 138/82 mm[Hg] Lab Results Date Name Specimen Result Interpretation Description Value Range Status Address 03/08/2018 Urinalysis Complete, Reflex Culture Normal Color yellow yellow Final [facility]: [address] [address], [place] ABNORMAL Appearance cloudy clear Final [facility]: [address] [address], [place] Normal Specific [place] 1.014 1.001-1.035 Final [facility]: [address] [address], [place] Normal Ph 7.0 5.0-8.0 Final [facility]: [address] [address], [place] Normal Glucose negative negative Final [facility]: [address] [address], [place] Normal Bilirubin negative negative Final [facility]: [address] [address], [place] Normal Ketones negative negative Final [facility]: [address] [place] [address], [place] Normal Occult Blood negative negative Final [facility]: [address] [place] [address], [place] Normal Protein negative negative Final [facility]: [address] [place] [address], [place] ABNORMAL Nitrite positive negative Final [facility]: [address] [place] [address], [place] ABNORMAL Leukocyte Esterase 3+ negative Final [facility]: [address] [place] [address], [place] ABNORMAL Wbc 20-40 /hpf < or=5 /hpf Final [facility]: [address] [place] [address], [place] Normal Rbc 0-2 /hpf < or=2 /hpf Final [facility]: [address] [place] [address], [place] Squamous Epithelial Cells 0-5 /hpf < or=5 /hpf Final [facility]: [address] ABNORMAL Bacteria many /hpf none seen /hpf Final [facility]: [address] Normal Hyaline Cast none seen /lpf none seen /lpf Final [facility]: [address] Comments few mucous threads Final [facility]: [address] Reflexive Urine Culture culture indicated - results to follow [facility]: [address] [place] [address], [place] 03/08/2018 Culture, Urine ABNORMAL Culture, Urine, Routine see note [facility]: [address] [place] [address], [place] 03/08/2018 Urinalysis, Dipstick Color Color yellow [facility] ([facility] [place]: [address] [place] Color Appearance cloudy [facility] ([facility] [place]: [address] [place] Color Glucose negative [facility] [place]: [address] [place] Color Bilirubin negative [facility] [place]: [address] [place] Color Ketones negative [facility] [place]: [address] [place] Color Specific [place] 1.015 [facility] [place]: [address] [place] Color Blood negative [facility] [place]: [address] [place] Color PH 7.0 [facility] [place]: [address] [place] Color Protein negative [facility] ([facility]) [place]: [address] [place] Color Urobilinogen 0.2 [facility] ([facility] [place]: [address] [place] Color Nitrites positive [facility] ([facility]) [place]: [address] [place] Color Leukocytes moderate [facility] ([facility]) [place]: [address] [place] Allergies Code Code System Name Reaction Severity Status Onset 57624 RxNorm Tizanidine Active 28034 RxNorm Trazodone Active Problems Name Status Onset [...] History Smoking Status Never Smoker Past Encounters 04/05/2018 Lumbar Spondylosis; Low Back Pain; Neck Pain; Localized Eruption of Skin; Hypertensive Disorder; Hypothyroidism; Urinary Incontinence; Restless Legs; Depression Screening; Alcohol Consumption Screening; Screening for Disorder Johnny Vargas MD: [address] [facility] [place] [address], Ph. 03/08/2018 Lumbago with Sciatica; Gastroesophageal Reflux Disease; Acute Urinary Tract Infection; Senile Purpura; Immunization; Alcohol Consumption Screening Johnny Vargas MD: [address] [place] [address], Ph. History of Present Illness Note:Hx of lumbar spondylosis complaining of worsening pain in the L side of the lumbar area, that comes and goes since a few days ago. Intensity: 5/10. Sharp type. Radiated to the L leg. Better with tylenol #3. <div>Pain in the left side of the neck, constant, since a few years ago. Intensity: 5-10/10. Denies numbness, tingling or weakness in the arms or legs.</div> Review of Systems Comprehensive General Adult ROS Reported By: Patient Constitutional: Constitutional: no fever Eyes: Eyes: no vision change ENMT: Ears: no ear pain. Nose: no sinus problems. Mouth/Throat: no sore throat Cardiovascular: Cardiovascular: no chest pain, no palpitations, no lightheadedness Respiratory: Respiratory: no cough, no wheezing, no shortness of breath Gastrointestinal: Gastrointestinal: no abdominal pain, no nausea, no vomiting, no constipation, no diarrhea Musculoskeletal: Musculoskeletal: no swelling in the extremities, muscle aches, arthralgias/joint pain Integumentary: Skin: rash, itching Neurologic: Neurologic: no loss of consciousness, no headaches Psychiatric: Psych: no depression, no alcohol abuse, no anxiety, no suicidal thoughts Endocrine: Endocrine: no fatigue Physical Exam General Adult Exam (male) Reported By: Patient Constitutional: General Appearance: healthy-appearing, obese. Level of Distress: NAD. Ambulation: ambulating normally Psychiatric: Insight: good judgement. Mental Status: active and alert, normal mood, normal affect. Orientation: to time, to place, to person. Memory: recent memory normal, remote memory normal Eyes: Lids and Conjunctivae: non-injected, no discharge Neck: Neck: pain with motion, tender, muscle rigidity Lungs: Auscultation: breath sounds normal Cardiovascular: Heart Auscultation: RRR, normal S1, normal S2, no murmurs Abdomen: Inspection and Palpation: soft, non-distended, no tenderness, no guarding, no rebound tenderness, no masses Musculoskeletal:: Motor Strength and Tone: normal, normal tone. Joints, Bones, and Muscles: normal movement of all extremities Neurologic: Gait and Station: normal gait. Sensation: grossly intact. Reflexes: DTRs 2+ bilaterally throughout Skin: Inspection and palpation: ; Erythematous area in the back of the neck Back: Thoracolumbar Appearance: ; Tenderness with palpation in the left side of the lumbar area with muscle spasms. Decreased ROM because of the pain. Positive straight leg raising test in the L side
--- OUTSIDE RECORDS SUMMARY | 2018-10-17 11:35 | XMS REPORT | Encounter Summary ---
Author Organization Unknown Address [address] [place] [address] Phone [phone] Care Team Providers Care Mortgage Loan Processing Clerk Name Role Phone Dr. Johnny Rodriguez 3 [phone] [facility] 109 [phone] Reason for Visit Left low back pain Instructions 1. Lumbago with sciatica Tylenol-Codeine #3 300 mg-30 mg tablet tizanidine 2 mg tablet ketorolac 60 mg/2 mL intramuscular solution 2. Gastroesophageal reflux disease esomeprazole magnesium 40 mg capsule,delayed release 3. Acute urinary tract infection urinalysis, dipstick urinalysis complete, reflex culture Keflex 500 mg capsule 4. Senile purpura 5. Immunization Fluzone High-Dose 3618-1753 (PF) 180 mcg/0.5 mL intramuscular syringe 6. Alcohol consumption screening learning about alcohol misuse Discussion Note: None recorded. Plan of Care Reminders Provider Appointments None recorded. Lab Urinalysis, Dipstick 03/08/2018 [facility] Urinalysis Complete, Reflex Culture 03/08/2018 [facility] Referral None recorded. Procedures None recorded. Surgeries None recorded. Imaging None recorded. Medications Name Start Date anastrozole 1 mg tablet Take 1 tablet every day by oral route as directed for 30 days. bupropion HCl SR 150 mg tablet,12 hr sustained-release Take 1 tablet twice a day by oral route as directed for 90 days. esomeprazole magnesium 40 mg capsule,delayed release TAKE ONE CAPSULE BY MOUTH EVERY DAY fenofibrate nanocrystallized 145 mg tablet Take 1 tablet every day by oral route for 90 days. gabapentin 600 mg tablet Take 1 tablet 3 times a day by oral route as directed for 90 days. Keflex 500 mg capsule Take 1 capsule every 8 hours by oral route as directed for 10 days. ketorolac 60 mg/2 mL intramuscular solution Inject 2 mL as needed by intramuscular route. levothyroxine 88 mcg tablet Take 1 tablet [...] oral route. ropinirole 0.25 mg tablet Take 1 tablet 3 times a day by oral route. simvastatin 20 mg tablet Take 1 tablet every day by oral route. tizanidine 2 mg tablet Take 1 tablet as needed by oral route at bedtime for 14 days. triamcinolone acetonide 0.5 % topical ointment APPLY A THIN LAYER TO THE AFFECTED AREA(S) BY TOPICAL ROUTE 2 TIMES PER DAY FOR UP TO 2 WEEKS Tylenol-Codeine #3 300 mg-30 mg tablet Take 1 tablet twice a day by oral route as needed for 10 days. Medications Administered Name Date ketorolac 60 mg/2 mL intramuscular solution Inject 2 mL as needed by intramuscular route. 7826-86-22H06:36:00 Vitals Height Weight BMI Blood Pressure 5 ft 0.6 in 108/70 mm[Hg] Lab Results None recorded. Allergies Code Code System Name Reaction Severity Status Onset 48112 RxNorm Trazodone Active Problems Name Status Onset [...] not available 02/08/2012 Colonoscopy Information not available 02/14/2018 [facility] [address] [place] [address] ([address]) 02/22/2018 [facility] [address] [place] [address] ([address]) Vaccine List Vaccine Type influenza, high dose seasonal 03/08/20180.5 mL pneumococcal conjugate PCV 13 08/29/20170.5 mL pneumococcal, unspecified formulation 02/07/2015 zoster 02/07/2014 Social History Smoking Status Never Smoker Past Encounters 03/08/2018 Lumbago with Sciatica; Gastroesophageal Reflux Disease; Acute Urinary Tract Infection; Senile Purpura; Immunization; Alcohol Consumption Screening Johnny Vargas MD: [address] [place] [address], Ph. 02/14/2018 Sciatica; Screening for Osteoporosis; Immunization; Malignant Neoplasm of Female Breast; Depressive Disorder; Contact Dermatitis; Insomnia; Body Mass Index 30+ - Obesity Johnny Vargas MD: [address] [place] [address], Ph. History of Present Illness Note:Pain in the left side of the lumbar area since 5 days ago approximately. Constant. Intensity: 9/10. No radiation. Sharp type. Denies numbness, tingling or weakness in the legs. Review of Systems Comprehensive General Adult ROS Reported By: Patient Constitutional: Constitutional: no fever Cardiovascular: Cardiovascular: no chest pain, no palpitations, no lightheadedness Respiratory: Respiratory: no cough, no wheezing, no shortness of breath Gastrointestinal: Gastrointestinal: no abdominal pain, no nausea, no vomiting, no constipation, normal appetite, no diarrhea Musculoskeletal: Musculoskeletal: muscle aches, back pain Neurologic: Neurologic: no loss of consciousness, no headaches Psychiatric: Psych: no depression, no alcohol abuse, no anxiety, no suicidal thoughts Physical Exam General Adult Exam (male) Reported By: Patient Constitutional: General Appearance: healthy-appearing, obese. Level of Distress: NAD. Ambulation: ambulating normally Psychiatric: Insight: good judgement. Mental Status: active and alert, normal mood, normal affect. Orientation: to time, to place, to person. Memory: recent memory normal, remote memory normal Eyes: Lids and Conjunctivae: non-injected, no discharge Lungs: Auscultation: breath sounds normal Cardiovascular: Heart Auscultation: RRR, normal S1, normal S2, no murmurs Abdomen: Inspection and Palpation: soft, non-distended, no tenderness, no guarding, no rebound tenderness, no masses Musculoskeletal:: Motor Strength and Tone: normal, normal tone. Joints, Bones, and Muscles: normal movement of all extremities Neurologic: Gait and Station: normal gait. Sensation: grossly intact. Reflexes: DTRs 2+ bilaterally throughout Back: Thoracolumbar Appearance: ; Tenderness with palpation in the left side of the lumbar area with muscle spasms. Decreased ROM because of the pain. Positive straight leg raising test in the L side
--- OUTSIDE RECORDS SUMMARY | 2018-10-17 11:35 | XMS REPORT | Encounter Summary ---
Author Organization Unknown Address [address] [place] [address] Phone [phone] Care Team Providers Care Loom Technician Name Role Phone Dr. Johnny Rodriguez 3 [phone] [facility] 109 [phone] Reason for Visit runny nose; sore throat; dizziness; other - see typed reason; cough Instructions 1. Upper respiratory infection Zithromax Z-Adalberto 250 mg tablet fluticasone propionate 50 mcg/actuation nasal spray,suspension Tessalon Perles 100 mg capsule Kenalog 40 mg/mL suspension for injection 2. Acute bronchospasm ProAir HFA 90 mcg/actuation aerosol inhaler 3. Fatigue CBC w/ auto diff TSH, serum or plasma CMP, serum or plasma vitamin D, 25-hydroxy, total, serum 4. Screening for disorder hepatitis C virus RNA, quant, PCR, serum or plasma 5. Pain in throat rapid strep group A, throat Discussion Note: None recorded. Patient educational handouts: No information available. Plan of Care Reminders Provider Appointments Return to Office on or around 07/03/2018 Johnny Vargas MD Lab Hepatitis C Virus RNA, Quant, PCR, Serum or Plasma 04/27/2018 [facility] Laboratory Rapid Strep Group a, Throat 04/27/2018 [facility] ([facility] CBC W/ Auto Diff 04/27/2018 [facility] TSH, Serum or Plasma 04/27/2018 [facility] CMP, Serum or Plasma 04/27/2018 [facility] Vitamin D, 25-Hydroxy, Total, Serum 04/27/2018 [facility] Laboratory Referral None recorded. Procedures None [...] oral route as directed for 90 days. Kenalog 40 mg/mL suspension for injection Take 1 mL by injection route. levothyroxine 88 mcg tablet Take 1 [...] oral route as needed for 10 days. Zithromax Z-Adalberto 250 mg tablet TAKE 2 TABLETS (500 MG) BY ORAL ROUTE ONCE DAILY FOR 1 DAY THEN 1 TABLET (250 MG) BY ORAL ROUTE ONCE DAILY FOR 4 DAYS Medications Administered Name Date Kenalog 40 mg/mL suspension for injection Take 1 mL by injection route. [id number]:46:06 Vitals Height Weight BMI Blood Pressure 5 ft 0.6 in 126/82 mm[Hg] Lab Results Date Name Specimen Result Interpretation Description Value Range Status Address 04/05/2018 Urinalysis, Dipstick Color Color yellow [facility] ([facility] [place]: [address] [place] Color Appearance clear [facility] [place]: [address] [place] Color Glucose negative [facility] [place]: [address] [place] Color Bilirubin negative [facility] [place]: [address] [place] Color Ketones negative [facility] ([facility] [place]: [address] [place] Color Specific [place] 1.010 [facility] [place]: [address] [place] Color Blood negative [facility] [place]: [address] [place] Color PH 6.0 [facility] [place]: [address] [place] Color Protein negative [facility] [place]: [address] [place] Color Urobilinogen 0.2 [facility] [place]: [address] [place] Color Nitrites negative [facility] [place]: [address] [place] Color Leukocytes negative [facility] [place]: [address] [place] Allergies Code Code System Name Reaction Severity Status Onset 37901 RxNorm Tizanidine Active 47905 RxNorm Trazodone Active Problems Name Status Onset [...] History Smoking Status Never Smoker Past Encounters 04/27/2018 Upper Respiratory Infection; Acute Bronchospasm; Fatigue; Screening for Disorder; Pain in Throat Johnnyromero Vargas MD: [address] [place] [address], Ph. 04/05/2018 Lumbar Spondylosis; Low Back Pain; Neck Pain; Localized Eruption of Skin; Hypertensive Disorder; Hypothyroidism; Urinary Incontinence; Restless Legs; Depression Screening; Alcohol Consumption Screening; Screening for Disorder Johnny Vargas MD: [address] [place] [address], Ph. History of Present Illness Note:Pt is complaining of runny nose,nasal congestion,dry cough,sore throat and SOB since 3 days ago. Denies fever or wheezing. Fatigue since 2 weeks ago. Review of Systems:ROS as noted in the HPI Review of Systems None recorded. Physical Exam General Adult Exam (male) Reported By: Patient Constitutional: General Appearance: healthy-appearing. Level of Distress: NAD Psychiatric: Insight: good judgement. Mental Status: active and alert, normal mood, normal affect. Orientation: to time, to place, to person. Memory: recent memory normal, remote memory normal Eyes: Lids and Conjunctivae: non-injected, no discharge. EOM: EOMI ENMT: Ears: TMs clear. Nose: nares non-patent, nasal discharge, post nasal drip. Lips, Teeth, and Gums: no mouth or lip ulcers. Oropharynx: moist mucous membranes, no exudates, tonsils not enlarged, erythema Neck: Neck: supple, trachea midline. Lymph Nodes: cervical LAD Lungs: Auscultation: breath sounds normal Cardiovascular: Heart Auscultation: RRR, normal S1, normal S2, no murmurs Musculoskeletal:: Motor Strength and Tone: normal, normal tone. Joints, Bones, and Muscles: normal movement of all extremities. Extremities: no edema Neurologic: Gait and Station: normal gait. Cranial Nerves: grossly intact
--- OUTSIDE RECORDS SUMMARY | 2018-10-17 11:35 | XMS REPORT | Encounter Summary ---
Author Organization Unknown Address [address] [place] [address] Phone [phone] Care Team Providers Care Glue Machine Operator Name Role Phone Dr. Johnny Rodriguez 3 [phone] [facility] 109 [phone] Reason for Visit skin problem/rash Instructions 1. Hyperpigmentation of skin triamcinolone acetonide 0.5 % topical ointment 2. Insomnia alprazolam 0.5 mg tablet Discussion Note: None recorded. Patient educational handouts: No information available. Plan of Care Reminders Provider Appointments Return to Office on or around 08/22/2018 Johnny Vargas MD Lab None recorded. Referral None recorded. Procedures None recorded. Surgeries None recorded. Imaging None recorded. Medications Name Start Date alprazolam 0.25 mg tablet Take 1 tablet as needed by oral route at bedtime for 20 days. alprazolam 0.5 mg tablet Take 1 tablet as needed by oral route at bedtime for 30 days. anastrozole 1 mg tablet Take 1 tablet [...] TAKE 1 TABLET BY MOUTH EVERY DAY triamcinolone acetonide 0.5 % topical ointment APPLY [...] ft 0.6 in 160 lbs 30.6 kg/m2 134/80 mm[Hg] Lab Results Date Name Specimen Result Interpretation Description Value Range Status Address 04/27/2018 Hepatitis C Virus RNA, Quant, PCR, Serum or Plasma Normal Hepatitis C Antibody non-reactive non-reactive Final [facility]: [address] [place] [address] Normal Signal to Cut-off 0.01 <1.00 Final [facility]: [facility] Jennifer linus [address] 04/27/2018 CBC W/ Auto Diff Wbc 4.69 x10*3/L 3.98-10.04 x10*3/L Final [facility]: [address] [place] [address] Rbc 4.09 10*12/L 3.93-5.22 10*12/L Final [facility]: [address] [place] [address] Hemoglobin 12.10 g/dL 11.20-15.70 g/dL Final [facility]: [address] Hematocrit 37.4 % 34.1-44.9 % Final [facility]: [address] [place] [address] Mcv 91.4 fL 80.0-100.0 fL Final [facility]: [address] [place] [address] Mch 29.6 pg 25.6-32.2 pg Final [facility]: [address] [place] [address] Mchc 32.4 g/dL 32.2-35.5 g/dL Final [facility]: [address] [facility] RDW-SD 51.5 fL 36.4-46.3 fL Final [facility]: [address] [place] Platelet Count 218.0 k/uL 182.0-369.0 k/uL Final [facility]: [address] [facility] Mpv 11.6 fL 7.5-11.5 fL Final [facility]: [address] [place] Neut% 42.5 % 34.0-71.1 % Final [facility]: [address] [place] Lymph% 40.7 % 19.3-51.7 % Final [facility]: [address] [facility] Mon% 15.1 % 4.7-12.5 % Final [facility]: [address] [place] Eos% 1.3 % 0.7-5.8 % Final [facility]: [address], [place] Baso% 0.4 % 0.1-1.2 % Final [facility]: [address] [place] Neut# 2.0 x10*3/L 1.6-6.1 x10*3/L Final [facility]: [address] [place] Lymph# 1.9 x10*3/L 1.2-3.7 x10*3/L Final [facility]: [address] [place] Mon# 0.7 x10*3/L 0.2-0.9 x10*3/L Final [facility]: [address] [place] Eos# 0.06 x10*3/L 0.04-0.36 x10*3/L Final [facility] [address] [facility] Baso# 0.02 x10*3/L 0.01-0.08 x10*3/L Final [facility]: [address] [place] 04/27/2018 CMP, Serum or Plasma Alt 24 U/L 0-55 U/L Final [facility]: [address] Bauman [facility] [place] Ast 21 U/L 5-34 U/L Final [facility]: [address] Bauman [facility] [place] Bun 16.2 mg/dL 9.8-20.1 mg/dL Final [facility]: [address] Bauman [facility] [place] Alk Phos 91 unit/L 40-150 unit/L Final [facility]: [address]uman [facility] [place] High Glucose 103 mg/dL 70-99 mg/dL Final [facility]: [address] [place] [address], [place] Albumin 3.9 g/dL 3.5-5.0 g/dL Final [facility]: [address] [place] [address], [place] Creatinine 0.82 mg/dL 0.57-1.11 mg/dL Final [facility]: [address] eGFR Non- >60 mL/min/1.73m2 Final [facility]: [address] Total Bilirubin 0.9 mg/dL 0.2-1.2 mg/dL Final [facility]: [address] eGFR - >60 mL/min/1.73m2 Final [facility]: [address]uman [address] [place] [address] Sodium 143 mEq/L 136-145 mEq/L Final [facility]: [address] Potassium 3.8 mEq/L 3.5-5.1 mEq/L Final [facility]: [address] [place] [address], [place] Chloride 104 mmol/L 98-107 mmol/L Final [facility]: [address] Total Protein 6.9 g/dL 6.4-8.3 g/dL Final [facility]: [address] Calcium 9.6 mg/dL 8.4-10.2 mg/dL Final [facility]: [address] [place] [address], [place] Co2 29.4 mmol/L 23.0-31.0 mmol/L Final [facility]: [address] Anion Gap 10 calc Final [facility]: [address] [place] [address], [place] 04/27/2018 TSH, Serum or Plasma Low Tsh 0.142 uIU/mL 0.350-4.940 uIU/mL Final [facility]: [address] [place] [address], [place] 04/27/2018 Vitamin D, 25-Hydroxy, Total, Serum Low Vitamin D 25OH 16.6 NG/mL 30.0-96.0 NG/mL Final [facility]: [address] [place] [address], [place] 04/27/2018 Rapid Strep Group a, Throat Strep negative [facility] ([facility]) [place]: [address] [facility] Allergies Code Code System Name Reaction Severity Status Onset 98368 RxNorm Tizanidine Active 89824 RxNorm Trazodone Active Problems Name Status Onset [...] History Smoking Status Never Smoker Past Encounters 05/19/2018 Hyperpigmentation of Skin; Insomnia Johnny Vargas MD: [facility] [place] [address], Ph. 05/01/2018 Vitamin D Deficiency; Hypothyroidism; Insomnia; Body Mass Index 30+ - Obesity Johnny Vargas MD: [address] [place] [address], Ph. 04/27/2018 Upper Respiratory Infection; Acute Bronchospasm; Fatigue; Screening for Disorder; Pain in Throat Johnny Vargas MD: [address] [place] [address], Ph. History of Present Illness Note:Hyperpigmented spots in the abdomen since 3-4 weeks ago. Denies tenderness or itchiness. <div>F/u on insomnia. Pt used to take temazepam, but it's not covered by the insurance anymore. She was started on alprazolam 0.25 mgs as needed, but she is waking up several times throughout the night and doesn't feel rested the next day.</div> Review of Systems Comprehensive General Adult ROS Reported By: Patient Cardiovascular: Cardiovascular: no chest pain, no palpitations, no lightheadedness Respiratory: Respiratory: no cough, no wheezing, no shortness of breath Gastrointestinal: Gastrointestinal: no abdominal pain, no nausea, no vomiting, no constipation, no diarrhea Musculoskeletal: Musculoskeletal: no muscle aches, no swelling in the extremities Integumentary: Skin: rash Neurologic: Neurologic: no loss of consciousness, no [...] Memory: recent memory normal, remote memory normal Neck: Neck: supple Lungs: Auscultation: breath sounds normal Cardiovascular: Heart Auscultation: RRR, normal S1, normal S2, no murmurs Neurologic: Gait and Station: normal gait. Coordination and Cerebellum: no tremor Skin: Inspection and palpation: ; Hyperpigmented spots in the abdomen with scaly/flaking skin
--- OUTSIDE RECORDS SUMMARY | 2018-10-17 11:36 | XMS REPORT | Encounter Summary ---
Author Organization Unknown Address [address] [place] [address] Phone [phone] Care Team Providers Care Manager Of Construction Name Role Phone Dr. Johnny Rodriguez 3 [phone] [facility] 109 [phone] Reason for Visit Left neck pain; other - see typed reason Instructions 1. Neck pain meloxicam 15 mg tablet Tylenol-Codeine #3 300 mg-30 mg tablet Skelaxin 800 mg tablet ketorolac 30 mg/mL (1 mL) injection solution 2. Paresthesia of upper limb 3. Insomnia alprazolam 0.5 mg tablet Discussion Note: None recorded. Patient educational handouts: No information available. Plan of Care Reminders Provider Appointments Est Patient 11/03/2018 10:00AM Johnny Vargas MD Lab None recorded. Referral None recorded. Procedures None recorded. Surgeries None recorded. Imaging None recorded. Medications Name Start Date alprazolam 0.5 mg tablet Take 1 tablet as needed by oral route at bedtime for 30 days. anastrozole 1 mg tablet Take 1 tablet every day by oral route as directed for 30 days. bupropion HCl SR 150 mg tablet,12 hr sustained-release Take 1 tablet every day by oral route for 90 days. esomeprazole magnesium 40 mg capsule,delayed release TAKE ONE CAPSULE BY MOUTH EVERY DAY fenofibrate nanocrystallized 145 mg tablet Take 1 tablet every day by oral route for 90 days. gabapentin 600 mg tablet TAKE 1 TABLET BY MOUTH THREE TIMES DAILY DIRECTED ketorolac 30 mg/mL (1 mL) injection solution Inject 2 mL as needed by intramuscular route. levothyroxine 88 mcg tablet Take 1 tablet every day by oral route for 90 days. lidocaine 5 % topical patch UNWRAP AND APPLY 1 PATCH TOPICALLY TO THE AFFECTED AREA TWICE DAILY NEEDED meloxicam 15 mg tablet Take 1 tablet every day by oral route as needed for 30 days. metoprolol succinate ER 25 mg tablet,extended release 24 hr TAKE 1 TABLET BY MOUTH EVERY DAY oxybutynin chloride ER 10 mg tablet,extended release 24 hr TAKE 1 TABLET BY MOUTH EVERY DAY ropinirole 0.25 mg tablet TAKE 2 TABLETS BY MOUTH ONCE DAILY IN THE EVENING simvastatin 20 mg tablet TAKE 1 TABLET BY MOUTH EVERY DAY Skelaxin 800 mg tablet Take 1 tablet twice a day by oral route as needed for 15 days. triamcinolone acetonide 0.5 % topical ointment APPLY A THIN LAYER TO THE AFFECTED AREA(S) BY TOPICAL ROUTE 2 TIMES PER DAY FOR UP TO 2 WEEKS Tylenol-Codeine #3 300 mg-30 mg tablet Take 1 tablet twice a day by oral route as needed for 7 days. Vitamin D2 50,000 unit capsule Take 1 capsule every week by oral route as directed for 56 days. Medications Administered Name Date ketorolac 30 mg/mL (1 mL) injection solution Inject 2 mL as needed by intramuscular route. [id number]:37:50 Vitals Height Weight BMI Blood Pressure 5 ft 0.6 in 165 lbs 31.6 kg/m2 132/91 mm[Hg] Lab Results None recorded. Allergies Code Code System Name Reaction Severity Status Onset 83348 RxNorm Tizanidine Dizziness Active 50425 RxNorm Trazodone Active Problems Name Status Onset [...] by 02/07/2013 Hernia Repair Information not available Vaccine List Vaccine Type influenza, high dose seasonal 03/08/20180.5 mL pneumococcal conjugate PCV 13 08/29/20170.5 mL pneumococcal, unspecified formulation 02/07/2015 zoster 02/07/2014 Social History Smoking Status Never Smoker Past Encounters 08/23/2018 Neck Pain; Paresthesia of Upper Limb; Insomnia Johnny Vargas MD: [address] [place] [phone], Ph. 2018 Paresthesia of Upper Limb; Vitamin D Deficiency; Chronic Neck Pain Johnny Vargas MD: [address] [place] [phone], Ph. 08/17/2018 Sleep Pattern Disturbance; Fatigue; Urge Incontinence of Urine; Vitamin D Deficiency; Body Mass Index 30+ - Obesity; Obesity Johnnyromero Vargas MD: [address] [place] [phone], Ph. 08/02/2018 Adult Health Examination; Advance Directive Discussed with Patient; Depression Screening; Screening for Malignant Neoplasm of Colon; Bone Density Scan Declined; Screening for Malignant Neoplasm of Breast; Insomnia; Fatigue; Lumbago with Sciatica Johnny Vargas MD: [address] [place] [phone], Ph. History of Present Illness Note:Pain in the left side of the neck since yesterday. Intensity: 5/10, radiated to the left shoulder. Sharp type. Not known triggers. <div>Burning sensation in left forearm since 08/17/18 after venipuncture (see note from 08/21/18 for details).
<div>Watery diarrhea and poor appetite since 2 days ago. Denies nausea, vomiting or abdominal pain. </div></div> Review of Systems:ROS as noted in the [...] and Conjunctivae: non-injected, no discharge Neck: Neck: trachea midline, pain with motion, tender Lungs: Auscultation: breath sounds normal Cardiovascular: Heart Auscultation: RRR, normal S1, normal S2, no murmurs Musculoskeletal:: Motor Strength and Tone: normal, normal tone. Joints, Bones, and Muscles: normal movement of all extremities, no contractures, no bony abnormalities, no malalignment, tenderness. Extremities: no edema Neurologic: Gait and Station: normal gait. Sensation: grossly intact. Reflexes: DTRs 2+ bilaterally throughout. Coordination and Cerebellum: no tremor Skin: Inspection and palpation: no rash, no lesions
--- OUTSIDE RECORDS SUMMARY | 2018-10-17 11:36 | XMS REPORT | Encounter Summary ---
Author Organization Unknown Address [address] [place] [address] Phone [phone] Care Team Providers Care Interventional Technologist Name Role Phone Dr. Johnny Rodriguez 3 [phone] [facility] 109 [phone] Reason for Visit Left neck pain Instructions 1. Lumbago with sciatica lidocaine 5 % topical patch Medrol (Adalberto) 4 mg tablets in a dose pack gabapentin 600 mg tablet ketorolac 30 mg/mL injection solution ketorolac 30 mg/mL injection solution 2. Vitamin D deficiency vitamin D, 25-hydroxy, total, serum 3. Hyperpigmentation of skin dermatology referral Discussion Note: None recorded. Patient educational handouts: No information available. Plan of Care Reminders Provider Appointments Return to Office on or around 09/21/2018 Johnny Vargas MD Lab Vitamin D, 25-Hydroxy, Total, Serum 07/13/2018 [facility] Referral Dermatology Referral 07/13/2018 Nolan Alexandra MD Procedures None recorded. Surgeries None recorded. [...] THREE TIMES DAILY DIRECTED ketorolac 30 mg/mL injection solution Inject 1 mL by intravenous route. levothyroxine 88 mcg tablet Take 1 tablet every day by oral route for 90 days. lidocaine 5 % topical patch APPLY 1 PATCH(S) TOPICALLY TWICE A DAY NEEDED Medrol (Adalberto) 4 mg tablets in a dose pack Take 1 dose pk by oral route. meloxicam 15 mg tablet Take 1 tablet every day by oral route as needed for 30 days. metoprolol succinate ER 25 mg tablet,extended release 24 hr Take 1 tablet every day by oral route for 90 days. oxybutynin chloride ER 10 mg tablet,extended release 24 hr Take 1 tablet every day by oral route. ropinirole 0.25 mg tablet TAKE 2 TABLETS BY MOUTH ONCE DAILY IN THE EVENING simvastatin 20 mg tablet TAKE 1 TABLET BY MOUTH EVERY DAY triamcinolone acetonide 0.5 % topical ointment APPLY A THIN LAYER TO THE AFFECTED AREA(S) BY TOPICAL ROUTE 2 TIMES PER DAY FOR UP TO 2 WEEKS Medications Administered Name Date ketorolac 30 mg/mL injection solution Inject 1 mL by intravenous route. [id number]:56:00 ketorolac 30 mg/mL injection solution Inject 1 mL by intravenous route. 5821-12-91D91:55:00 Vitals Height Weight BMI Blood Pressure 5 ft 0.6 in 110/82 mm[Hg] Lab Results None recorded. Allergies Code Code System Name Reaction Severity Status Onset 18893 RxNorm Tizanidine Dizziness Active 08916 RxNorm Trazodone Active Problems Name Status Onset [...] History Smoking Status Never Smoker Past Encounters 07/13/2018 Lumbago with Sciatica; Vitamin D Deficiency; Hyperpigmentation of Skin Johnny A. Rodriguez Vargas, MD: [address] [place] [address], Ph. 06/20/2018 Hyperpigmentation of Skin; Insomnia; Vitamin D Deficiency; Gastroesophageal Reflux Disease; Alcohol Consumption Screening Johnny Vargas MD: [address] [place] [address], Ph. History of Present Illness Note:<div>Pain in the left side of the neck and left side of the lumbar area s/p lumbar epidural injection since 1 week ago. Pt received the epidural injection 1 month ago approximately and she didn't have any pain for 2-3 weeks. Intensity: 10. Denies any neuro deficits.</div> Review of Systems Comprehensive General Adult ROS Reported By: Patient Cardiovascular: Cardiovascular: no chest pain, no palpitations, no lightheadedness Respiratory: Respiratory: no cough, no wheezing, no shortness of breath Gastrointestinal: Gastrointestinal: no abdominal pain, no nausea, no vomiting, no constipation, no diarrhea Musculoskeletal: Musculoskeletal: no swelling in the extremities Neurologic: Neurologic: [...] bilaterally throughout Skin: Inspection and palpation: ; hyperpigmented lesion in the R side of the abdomen Back: Thoracolumbar Appearance: ; Tenderness with palpation in the left side of the lumbar area with muscle spasms. Decreased ROM because of the pain. Positive straight leg raising test in the L side
--- OUTSIDE RECORDS SUMMARY | 2018-10-17 11:36 | XMS REPORT | Encounter Summary ---
Author Organization Unknown Address [address] [place] [address] Phone [phone] Care Team Providers Care Television Announcer Name Role Phone Dr. Johnny Rodriguez 3 [phone] Freddie [facility] 109 [phone] Reason for Visit Gastroesophageal reflux disease; Annual Alcohol Misuse Screening; other - see typed reason Instructions 1. Hyperpigmentation of skin triamcinolone acetonide 0.5 % topical ointment 2. Insomnia alprazolam 0.5 mg tablet 3. Vitamin D deficiency 4. Gastroesophageal reflux disease esomeprazole magnesium 40 mg capsule,delayed release 5. Alcohol consumption screening learning about alcohol misuse Discussion Note: None recorded. Plan of Care Reminders Provider Appointments Return to Office on or around 09/21/2018 Johnny Vargas MD Lab None recorded. Referral None recorded. Procedures None recorded. Surgeries None recorded. Imaging None recorded. Medications Name Start Date acetaminophen 300 mg-codeine 30 mg tablet Take 1 tablet twice a day by oral route as needed for 10 days. alprazolam 0.5 mg tablet Take 1 [...] PER DAY FOR UP TO 2 WEEKS Vitamin D2 50,000 unit capsule Take 1 capsule every week by oral route as directed for 56 days. Medications Administered None recorded. Vitals Height Weight BMI Blood Pressure 5 ft 0.6 in 160 lbs 30.6 kg/m2 130/78 mm[Hg] Lab Results None recorded. Allergies Code Code System Name Reaction Severity Status Onset 53962 RxNorm Tizanidine Dizziness Active 00981 RxNorm Trazodone Active Problems Name Status Onset [...] History Smoking Status Never Smoker Past Encounters 06/20/2018 Hyperpigmentation of Skin; Insomnia; Vitamin D Deficiency; Gastroesophageal Reflux Disease; Alcohol Consumption Screening Johnny Vargas MD: [address] [place] [address], Ph. History of Present Illness Note:F/u on hyperpigmented spots in the abdomen. Doing better, but not completely resolved. Pt needs a refill in triamcinolone ointment. <div>F/u on vitamin D supplementation. Pt completed 8 weeks of treatment.</div><div>F/u on insomnia. Sleeping better (6-7 hrs) since alprazolam was increased to 0.5 mgs. Denies anxiety, depression, suicidal/homicidal thoughts.</div> Review of Systems Comprehensive General Adult ROS [...] non-distended, no tenderness, no guarding, no rebound tenderness Neurologic: Gait and Station: normal gait. Coordination and Cerebellum: no tremor Skin: Inspection and palpation: ; Hyperpigmented spots in the abdomen
--- OUTSIDE RECORDS SUMMARY | 2018-10-17 11:36 | XMS REPORT | Encounter Summary ---
Author Organization Unknown Address [address] [place] [address] Phone [phone] Care Team Providers Care Sawmill Manager Name Role Phone Dr. Johnny Rodriguez 3 [phone] Freddie [facility] 109 [phone] Reason for Visit other - see typed reason Instructions 1. Paresthesia of upper limb electromyogram/nerve conduction referral - *Please call the patient and make an appointment* 2. Vitamin D deficiency Vitamin D2 50,000 unit capsule 3. Chronic neck pain lidocaine 5 % topical patch Discussion Note: None recorded. Patient educational handouts: No information available. Plan of Care Reminders Provider Appointments Return to Office on or around 11/03/2018 Johnny Vargas MD Lab None recorded. Referral Electromyogram/nerve Conduction Referral 2018 Alex Merino MD Procedures None recorded. Surgeries None recorded. [...] TABLET BY MOUTH THREE TIMES DAILY DIRECTED levothyroxine 88 mcg tablet Take 1 tablet every day by oral route for 90 days. lidocaine 5 % topical patch UNWRAP AND APPLY 1 PATCH TOPICALLY TO THE AFFECTED AREA TWICE DAILY NEEDED metoprolol succinate ER 25 mg tablet,extended release [...] BMI Blood Pressure 5 ft 0.6 in 162 lbs 31 kg/m2 (1) 152/92 mm[Hg] (2) 136/88 mm[Hg] Lab Results None recorded. Allergies Code Code System Name Reaction Severity Status Onset 29819 RxNorm Tizanidine Dizziness Active 48551 RxNorm Trazodone Active Problems Name Status Onset [...] History Smoking Status Never Smoker Past Encounters 2018 Paresthesia of Upper Limb; Vitamin D Deficiency; Chronic Neck Pain Johnny Vargas MD: [address] [place] [address], Ph. 08/17/2018 Sleep Pattern Disturbance; Fatigue; Urge Incontinence of Urine; Vitamin D Deficiency; Body Mass Index 30+ - Obesity; Obesity Johnny Vargas MD: [address] [place] [address], Ph. 08/02/2018 Adult Health Examination; Advance Directive Discussed with Patient; Depression Screening; Screening for Malignant Neoplasm of Colon; Bone Density Scan Declined; Screening for Malignant Neoplasm of Breast; Insomnia; Fatigue; Lumbago with Sciatica Johnny Vargas MD: [address] [place] [address], Ph. History of Present Illness Note:Complaining of burning sensation, numbness and tingling in the lateral aspect of the left forearm since she had the blood drawn here in the clinic 5 days ago. Denies weakness in hand or forearm. Review of Systems Comprehensive General Adult ROS Reported By: Patient Eyes: Eyes: no vision change Cardiovascular: Cardiovascular: no chest pain, no palpitations, no lightheadedness Respiratory: Respiratory: no cough, no wheezing, no shortness of breath Gastrointestinal: Gastrointestinal: no abdominal pain, no nausea, no vomiting, no constipation, no diarrhea Neurologic: Neurologic: no loss of consciousness, no headaches, numbness Psychiatric: Psych: no depression, no alcohol abuse, [...] Conjunctivae: non-injected, no discharge Neck: Neck: trachea midline Lungs: Auscultation: breath sounds normal Cardiovascular: Heart [...] no tremor Skin: Inspection and palpation: ; small hematoma in the left antecubital area
--- OUTSIDE RECORDS SUMMARY | 2018-10-17 11:36 | XMS REPORT | Encounter Summary ---
Author Organization Unknown Address [address] [place] [address] Phone [phone] Care Team Providers Care Brancher Name Role Phone Dr. Johnny Rodriguez 3 [phone] [facility] 109 [phone] Reason for Visit fatigue Instructions 1. Sleep pattern disturbance sleep study referral - *Please call the patient and make an appointment* 2. Fatigue CBC w/ auto diff CMP, serum or plasma TSH, serum or plasma 3. Urge incontinence of urine oxybutynin chloride ER 10 mg tablet,extended release 24 hr 4. Vitamin D deficiency vitamin D, 25-hydroxy, total, serum 5. Body mass index 30+ - obesity aprenda acerca del peso saludable - [learning about healthy weight] ndice de masa corporal: instrucciones de cuidado - [body mass index: care instructions] 6. Obesity Discussion Note: None recorded. Plan of Care Reminders Provider Appointments Return to Office on or around 11/03/2018 Johnny Varags MD Lab CBC W/ Auto Diff 08/17/2018 [facility] CMP, Serum or Plasma 08/17/2018 [facility] TSH, Serum or Plasma 08/17/2018 [facility] Vitamin D, 25-Hydroxy, Total, Serum 08/17/2018 [facility] Referral Sleep Study Referral 08/17/2018 [facility] Procedures None recorded. Surgeries None recorded. Imaging [...] 1 PATCH(S) TOPICALLY TWICE A DAY NEEDED metoprolol succinate ER 25 mg tablet,extended [...] FOR UP TO 2 WEEKS Medications Administered None recorded. Vitals Height Weight BMI Blood Pressure 5 ft 0.6 in 164.8 lbs 31.6 kg/m2 124/78 mm[Hg] Lab Results None recorded. Allergies Code Code System Name Reaction Severity Status Onset 35386 RxNorm Tizanidine Dizziness Active 00435 RxNorm Trazodone Active Problems Name Status Onset [...] History Smoking Status Never Smoker Past Encounters 08/17/2018 Sleep Pattern Disturbance; Fatigue; Urge Incontinence of Urine; Vitamin D Deficiency; Body Mass Index 30+ - Obesity; Obesity Johnny Vargas MD: [address] [place] [address], Ph. 08/02/2018 Adult Health Examination; Advance Directive Discussed with Patient; Depression Screening; Screening for Malignant Neoplasm of Colon; Bone Density Scan Declined; Screening for Malignant Neoplasm of Breast; Insomnia; Fatigue; Lumbago with Sciatica Johnny Melody Vargas MD: [address] [place] [address], Ph. History of Present Illness Note:F/u on fatigue. Still having difficulty sleeping. Doesn't feel rested the next day. Sometimes needs to take 2 tablets of alprazolam. Feels tired most of the time. Denies depression or anxiety. Review of Systems Comprehensive General Adult ROS Reported By: Patient Constitutional: Constitutional: no fever Eyes: Eyes: no vision change Cardiovascular: Cardiovascular: no chest pain, no palpitations, no lightheadedness Respiratory: Respiratory: no cough, no wheezing, no shortness of breath Gastrointestinal: Gastrointestinal: no abdominal pain, no nausea, no vomiting, no constipation, no diarrhea Neurologic: Neurologic: no loss of consciousness, no headaches Psychiatric: Psych: no depression, no alcohol abuse, no anxiety, no suicidal thoughts, sleep disturbances Endocrine: Endocrine: fatigue Physical Exam General Adult Exam (male) Reported By: Patient Constitutional: General Appearance: healthy-appearing, obese. Level of Distress: NAD. Ambulation: ambulating normally Psychiatric: Insight: good judgement. Mental Status: active and alert, normal mood, normal affect. Orientation: to time, to place, to person. Memory: recent memory normal, remote memory normal Eyes: Lids and Conjunctivae: non-injected, no discharge Neck: Neck: supple, trachea midline Lungs: Respiratory effort: no dyspnea. Auscultation: breath sounds normal Cardiovascular: Heart Auscultation: RRR, normal S1, normal S2, no murmurs Musculoskeletal:: Motor Strength and Tone: normal, normal tone. Joints, Bones, and Muscles: normal movement of all extremities. Extremities: no edema Neurologic: Gait and Station: normal gait. Cranial Nerves: grossly intact. Coordination and Cerebellum: no tremor
--- OUTSIDE RECORDS SUMMARY | 2018-10-17 11:36 | XMS REPORT | Encounter Summary ---
Author Organization Unknown Address [address] [place] [address] Phone [phone] Care Team Providers Care Student Ministry Pastor Name Role Phone Dr. Johnny Rodriguez 3 [phone] [facility] 109 [phone] Reason for Visit fatigue; AWV Annual Wellness Visit Female (VFP); Left shoulder pain Instructions 1. Adult health examination 2. Advance directive discussed with patient advance care planning: care instructions 3. Depression screening 4. Screening for malignant neoplasm of colon 5. Bone density scan declined 6. Screening for malignant neoplasm of breast 7. Insomnia 8. Fatigue 9. Lumbago with sciatica lidocaine 5 % topical patch Discussion Note: None recorded. Plan of Care Reminders Provider Appointments Return to Office on or around 11/03/2018 Johnny Vargas MD Lab None recorded. Referral None recorded. Procedures None recorded. Surgeries None recorded. Imaging None recorded. Medications Name Start Date acetaminophen 300 mg-codeine 30 mg tablet alprazolam 0.5 mg tablet Take 1 tablet [...] BMI Blood Pressure 5 ft 0.6 in 169.2 lbs 32.4 kg/m2 122/76 mm[Hg] Lab Results Date Name Specimen Result Interpretation Description Value Range Status Address 07/13/2018 Vitamin D, 25-Hydroxy, Total, Serum Vitamin D 25OH 30.6 NG/mL 30.0-96.0 NG/mL Final [facility]: [address] Allergies Code Code System Name Reaction Severity Status Onset 08365 RxNorm Tizanidine Dizziness Active 46589 RxNorm Trazodone Active Problems Name Status Onset [...] History Smoking Status Never Smoker Past Encounters 08/02/2018 Adult Health Examination; Advance Directive Discussed with Patient; Depression Screening; Screening for Malignant Neoplasm of Colon; Bone Density Scan Declined; Screening for Malignant Neoplasm of Breast; Insomnia; Fatigue; Lumbago with Sciatica Johnny Vargas MD: [address] [place] [address], Ph. 07/13/2018 Lumbago with Sciatica; Vitamin D Deficiency; Hyperpigmentation of Skin Johnny Vargas MD: [address] [place] [address], Ph. History of Present Illness Mini Cog Reported By: Patient Functional Ability: Personal/Social/ Draw a clock and write in the numbers in the correct place, and set the time to 10 minutes after 11 o'clock was completed correctly? Yes, 3 word recall: Your nurse or doctor will ask you to remember 3 words. In 5 minutes, they will ask you to repeat them. Patient recalled 3 words Review of Systems Comprehensive General Adult ROS Reported By: Patient Constitutional: Constitutional: no fever Eyes: Eyes: no vision change Cardiovascular: Cardiovascular: no chest pain Respiratory: Respiratory: no cough, no wheezing, no shortness of breath Gastrointestinal: Gastrointestinal: no abdominal pain Neurologic: Neurologic: no loss of consciousness, [...] discharge Neck: Neck: supple, trachea midline Lungs: Auscultation: breath sounds normal Cardiovascular: Heart Auscultation: RRR, normal S1, normal S2, no murmurs Neurologic: Gait and Station: normal gait
--- OUTSIDE RECORDS SUMMARY | 2018-10-17 11:36 | XMS REPORT | Encounter Summary ---
Author Organization Unknown Address [address] [place] [address] Phone [phone] Care Team Providers Care Brim Rounder Name Role Phone Dr. Johnny Rodriguez 3 [phone] Freddie [facility] 109 [phone] Reason for Visit Bilateral abdominal pain; dizziness Instructions 1. Right upper quadrant pain US, abdomen - *PLEASE CALL PT TO SCHEDULE* dicyclomine 20 mg tablet Discussion Note: None recorded. Patient educational handouts: No information available. Plan of Care Reminders Provider Appointments Est Patient 11/03/2018 10:00AM Johnny Vargas MD Lab None recorded. Referral None recorded. Procedures None recorded. Surgeries None recorded. Imaging US, Abdomen 09/25/[address] [facility] Medications Name Start Date acetaminophen 300 mg-codeine 30 mg tablet Take 1 tablet twice a day by oral route as needed for 7 days. alprazolam 0.5 mg tablet Take 1 tablet as needed by oral route at bedtime for 30 days. anastrozole 1 mg tablet TAKE 1 TABLET BY MOUTH EVERY DAY DIRECTED bupropion HCl SR 150 mg tablet,12 hr sustained-release Take 1 tablet every day by oral route for 90 days. dicyclomine 20 mg tablet Take 1 tablet twice a day by oral route as needed for 10 days. esomeprazole magnesium 40 mg capsule,delayed release [...] TO THE AFFECTED AREA TWICE DAILY NEEDED metaxalone 800 mg tablet Take 1 tablet twice a day by oral route as needed for 15 days. metoprolol succinate ER 25 mg tablet,extended release 24 hr TAKE 1 TABLET BY MOUTH EVERY DAY oxybutynin chloride ER 10 mg tablet,extended release 24 hr TAKE 1 TABLET BY MOUTH EVERY DAY ropinirole 0.25 mg tablet TAKE 2 TABLETS BY MOUTH ONCE DAILY IN THE EVENING simvastatin 20 mg tablet TAKE 1 TABLET BY MOUTH EVERY DAY temazepam 15 mg capsule triamcinolone acetonide 0.5 % topical ointment APPLY A THIN LAYER TO THE AFFECTED AREA(S) BY TOPICAL ROUTE 2 TIMES PER DAY FOR UP TO 2 WEEKS Vitamin D2 50,000 unit capsule Take 1 capsule every week by oral route as directed for 56 days. Medications Administered None recorded. Vitals Height Weight BMI Blood Pressure 5 ft 0.6 in 143 lbs 27.4 kg/m2 118/95 mm[Hg] Lab Results None recorded. Allergies Code Code System Name Reaction Severity Status Onset 53383 RxNorm Tizanidine Dizziness Active 99297 RxNorm Trazodone Active Problems Name Status Onset [...] by 02/07/2013 Hernia Repair Information not available 09/25/2018 US, Abdomen [facility] [address] [place] [address] (Work Place) Vaccine List Vaccine Type influenza, high dose seasonal 03/08/20180.5 mL pneumococcal conjugate PCV 13 08/29/20170.5 mL pneumococcal, unspecified formulation 02/07/2015 zoster 02/07/2014 Social History Tobacco Smoking Status Never Smoker Past Encounters 09/25/2018 Right Upper Quadrant Pain Johnny Melody Vargas MD: [address] [place] [address], Ph. History of Present Illness Note:RUQ and periumbilical pain since 3-4 days ago. Constant. Intensity: 5/10. No radiation. Concomitantly, lightheadedness, poor appetite and generalized weakness. Denies nausea, vomiting, diarrhea or constipation. Review of Systems:ROS as noted in the [...] EOM: EOMI ENMT: Ears: TMs clear. Nose: no sinus tenderness. Lips, Teeth, and Gums: no mouth or lip ulcers. Oropharynx: moist mucous membranes Neck: Neck: supple, trachea midline Lungs: Auscultation: breath sounds normal Cardiovascular: Heart Auscultation: RRR, normal S1, normal S2, no murmurs Abdomen: Inspection and Palpation: soft, non-distended, no guarding, no rebound tenderness, no masses, no CVA tenderness, epigastric tenderness, RUQ tenderness. Liver: non-tender, no hepatomegaly. Spleen: non-tender, no splenomegaly Neurologic: Gait and Station: normal gait Skin: Inspection and palpation: no rash, no lesions
--- NOTE | 2018-10-17 12:10 | NUR ---
x 3 IV ATTEMPTS, UNSUCCESFUL
--- NOTE | 2018-10-17 12:10 | NUR ---
PATIENT EVALUATED BY DR. QUARLES IN TREATMENT
[2018-10-17] MEDS ORDERED: SODIUM CHLORIDE 0.9% 1000ML 1,000 ML IV STA ×3 (12:12→14:09)
[2018-10-17 12:48] LABS: BASOPHILS % 0.1 % (0.0-1.0); EOSINOPHILS % 0.1 % (0.0-6.0); HEMOGLOBIN 12.9 g/dL (12.0-16.0); LYMPHOCYTES # (AUTO) 1.5 (1.0-3.2); LYMPHOCYTES % 10.5 % (18.0-39.1); MEAN CORPUSCULAR HEMOGLOBIN 31.4 pg (28-32); MEAN CORPUSCULAR HGB CONC 33.9 g/dL (31-35); MEAN CORPUSCULAR VOLUME 92.5 fL (81-99); MONOCYTES # (AUTO) 1.5 (0.2-0.8); MONOCYTES % 10.5 % (4.4-11.3); NEUTROPHILS # (AUTO) 11.3 (2.1-6.9); NEUTROPHILS % 78.3 % (38.7-80.0); PLATELET COUNT 205 x10e3/uL (140-360); RED BLOOD COUNT 4.11 x10e6/uL (3.6-5.1); RED CELL DISTRIBUTION WIDTH 15.7 % (11.7-14.4)
[2018-10-17 13:10] LABS: ALANINE AMINOTRANSFERASE 17 IU/L (0-55); ALBUMIN 3.7 g/dL (3.5-5.0); ALBUMIN/GLOBULIN RATIO 1.1 (0.8-2.0); ALKALINE PHOSPHATASE 86 IU/L (40-150); ANION GAP 16.4 mmol/L (8-16); BLOOD UREA NITROGEN 15 mg/dL (7-26); BUN/CREATININE RATIO 15 (6-25); CARBON DIOXIDE 28 mmol/L (22-29); CHLORIDE 98 mmol/L (98-107); CREATINE KINASE 125 IU/L (29-168); CREATININE, SERUM 0.97 mg/dL (0.57-1.11); EST GLOMERULAR FILTRATION RATE 56 ML/MIN (60-); GLUCOSE 121 mg/dL (74-118); LIPASE < 4 U/L (8-78); MAGNESIUM 1.6 MG/DL (1.3-2.1); POTASSIUM 3.4 mmol/L (3.5-5.1); SODIUM 139 mmol/L (136-145)
[2018-10-17 13:23] LABS: B-TYPE NATRIURETIC PEPTIDE2 102.1 pg/mL (0-100)
--- NOTE | 2018-10-17 13:23 | Diagnostic Imaging Report ---
Chest, 1 view, 10/17/2018. History: Fever, vomiting. Comparison: CT abdomen performed today. Findings: The cardiomediastinal silhouette and pulmonary vasculature are within normal limits for a portable exam. There is right apical pleural thickening. Right lung is otherwise clear. Patchy opacities are present in the peripheral left lower lung. There are no acute osseous or soft tissue abnormalities. Impression: Patchy opacities in the left lung suggestive of early pneumonia. Signed by: Luis Hardin on 10/17/2018 1:20 PM
--- NOTE | 2018-10-17 13:30 | Diagnostic Imaging Report ---
CT of the abdomen and pelvis, without contrast, 10/17/2018. History: Fever, vomiting. Comparison: Chest x-ray from today. Technique: Multidetector CT scanning of the abdomen and pelvis was performed from the level of the lung bases to the inferior pubic rami without intravenous or oral contrast. Coronal and sagittal multiplanar reformations were obtained. RADIATION DOSE: Total DLP: 481 mGy*cm Dose modulation, iterative reconstruction, and/or weight based adjustment of the mA/kV was utilized to reduce the radiation dose to as low as reasonably achievable. Discussion: Examination is limited without contrast. Lung bases: Patchy consolidation is present in the lingula and left lower lobe laterally. Abdomen: Small cysts are noted in the right lobe of the liver. Scarring is noted in the upper pole of the left kidney. The liver, gallbladder, biliary tree, spleen, pancreas, adrenal glands, and right kidney are unremarkable. The abdominal aorta is within normal limits. A large hiatal hernia is present. There is no bowel dilatation. The appendix is visualized and is normal. Status post left hemicolectomy. There is no evidence of adenopathy or free fluid. Pelvis: The bladder is unremarkable. There is no evidence of free fluid or adenopathy. Bones and soft tissues: Degenerative changes are present throughout the lumbar spine without evidence of lytic or sclerotic lesion. IMPRESSION: 1. Findings suggestive of lingular and left lower lobe pneumonia. 2. Small hepatic cysts. 3. Large hiatal hernia. 4. Post left hemicolectomy and hysterectomy. Signed by: Luis Hardin on 10/17/2018 1:26 PM
--- NOTE | 2018-10-17 13:43 | NUR ---
PATIENT AWAKE AND ALERT SITTING IN BED. RESP EVEN AND UNLABORED. SKIN WARM AND DRY. NO SIGNS OF ACUTE DISTRESS NOTED AT THIS TIME. DENIES ANY C/O AT THIS TIME. EDUCATED PATIENT AND SPOUSE ON THE CURRENT PLAN OF CARE,VERBALIZED UNDERSTANDING.
[2018-10-17] MEDS: ALBUTEROL SULF 0.083% NEB SOLN 3 ML NEB NEB SCH ×4 (14:00→23:45)
[2018-10-17] MEDS ORDERED: CEFTRIAXONE SOD 1 GRAM/0.9% SOD CHL 50ML BAG IV SCH (14:15)
[2018-10-17] MEDS ORDERED: CEFTRIAXONE SOD 1 GM/NS 50 ML 50 ML IV ONE (14:30)
[2018-10-17] MEDS ORDERED: AZITHROMYCIN 500MG/NS 250 ML 250 ML IV ONE (14:30)
--- OUTSIDE RECORDS SUMMARY | 2018-10-17 14:30 | XMS REPORT | Clinical Summary ---
Author Author [facility] Address Unknown Phone Unavailable Care Team Providers Care Working Second Hand Name Role Phone Patrick Wu MD PCP [...] ID Type Phone Address Plan / Group [facility] xxxxxxxxx MEDICARE MGD CARE MEDICARE HMO Advance Directives For more information, please contact: [facility] [address] [place] [address] Date Inactivated Comments Code Status Date Activated 06/25/2015 2:14 PM Full Code 06/25/2015 6:45 AM This code status was determined by: Patient 03/17/2015 7:54 AM Full Code 03/13/2015 11:08 AM This code status was determined by: Patient
--- OUTSIDE RECORDS SUMMARY | 2018-10-17 14:30 | XMS REPORT | Clinical Summary ---
Author Author [facility] Organization [facility] Address Unknown Phone Unavailable Care Team Providers Care Esl Tutor Name Role Phone Unknown, Phys PCP Unavailable [...] Dates Group HMO [employer] xxxxxxxxx 2015-P [facility] resent Medicaid MEDICAID MEDICAID xxxxxxxxx 2015-P resent Advance Directives For more information, please contact: [phone] Patient Pre Algebra Teacher Explanation Type Date Recorded Advance Directives, Living Will and Medical Power of Desktop Publishing Specialist Date Inactivated Comments Code Status Date Activated 12/25/2015 3:19 PM Full Code 12/24/2015 4:44 PM Code Status decision reached by: Patient
--- OUTSIDE RECORDS SUMMARY | 2018-10-17 14:31 | XMS REPORT ---
[facility] Address Unknown Phone Unavailable Care Team Providers Care Ux Developer Designer Name Role Phone FLAVIO QUARLES Unavailable Unavailable Problems This patient has no known problems. Allergies, Adverse Reactions, Alerts This patient has no known allergies or adverse reactions. Medications This patient has no known medications. Results Test Description Test Time Test Comments Text Results Atomic Results Result Comments CT ABDOMEN/PELVIS WO 2018-10-17 13:21:00 [facility] [address] [address] Patient Name: DUNCAN WINTER MR #: [id number] : 1945 Age/Sex: 73/F Req #: [id number] Adm Physician: Ordered by: FLAVIO QUARLES MD, MD Report #: [id number] Location: ER Room/Bed: Procedure: [id number] CT/CT ABDOMEN/PELVIS WO Exam Date: 10/17/18 Exam Time: 1245 REPORT STATUS: Signed CT of the abdomen and pelvis, without contrast, 11/2018. History: Fever, vomiting. Comparison: Chest x- ray from today. Technique: Multidetector CT scanning of the abdomen and pelvis was performed from the level of the lung bases to the inferior pubic rami without intravenous or oral contrast. Coronal and sagittal multiplanar reformations were obtained. RADIATION DOSE: Total DLP: 481 mGy*cm Dose modulation, iterative reconstruction, and/or weight based adjustment of the mA/kV was utilized to reduce the radiation dose to as low as reasonably achievable. Discussion: Examination is limited without contrast. Lung bases: Patchy consolidation is present in the lingula and left lower lobe laterally. Abdomen: Small cysts are noted in the right lobe of the liver. Scarring is noted in the upper pole of the left kidney. The liver, gallbladder, biliary tree, spleen, pancreas, adrenal glands, and right kidney are unremarkable. The abdominal aorta is within normal limits. A large hiatal hernia is present. There is no bowel dilatation. The appendix is visualized and is normal. Status post left hemicolectomy. There is no evidence of adenopathy or free fluid. Pelvis: The bladder is unremarkable. There is no evidence of free fluid or adenopathy. Bones and soft tissues: Degenerative changes are present throughout the lumbar spine without evidence of lytic or sclerotic lesion. IMPRESSION: 1. Findings suggestive of lingular and left lower lobe pneumonia. 2. Small hepatic cysts. 3. Large hiatal hernia. 4. Post left hemicolectomy and hysterectomy. Signed by: Rigo Hardin on 10/17/2018 1:26 PM Dictated By: RIGO HARDIN MD 1326 Transcribed By: ELINA on 10/17/18 1326 COPY TO: FLAVIO QUARLES CHEST SINGLE (PORTABLE) 2018-10-17 13:18:00 [address] [address] Patient Name: DUNCAN WINTER MR #: [id number] : 1945 Age/Sex: 73/F Req #: [id number] Adm Physician: Ordered by: FLAVIO QUARLES MD, MD Report #: [id number] Location: ER Room/Bed: Procedure: [id number] DX/CHEST SINGLE (PORTABLE) Exam Date: 10/17/18 Exam Time: 1300 REPORT STATUS: Signed Chest, 1 view, 10/17/2018. History: Fever, vomiting. Comparison: CT abdomen performed today. Findings: The cardiomediastinal silhouette and pulmonary vasculature are within normal limits for a portable exam. There is right apical pleural thickening. Right lung is otherwise clear. Patchy opacities are present in the peripheral left lower lung. There are no acute osseous or soft tissue abnormalities. Impression: Patchy opacities in the left lung suggestive of early pneumonia. Signed by: Rigo Hardin on 10/17/2018 1:20 PM Dictated By: RIGO HARDIN MD 1320 Transcribed By: ELINA on 10/17/18 1320 COPY TO: FLAVIO QUARLES
--- OUTSIDE RECORDS SUMMARY | 2018-10-17 14:31 | XMS REPORT | Continuity of Care Document ---
Author Author [employer] Organization [employer] Address Unknown Phone Unavailable Care Team Providers Care Project Designer Name Role Phone [employer] Unavailable Unavailable Problems Problem Status Onset Date Classification Date Reported Comments Source Hyperpigmentation of skin 05/19/2018 Diagnosis 05/23/2018 [facility] Insomnia 05/01/2018 Diagnosis 05/23/2018 [facility] Vitamin D deficiency 05/01/2018 Diagnosis 05/23/2018 [facility] Body mass index 30+ - obesity 05/01/2018 Diagnosis 05/23/2018 [facility] Fatigue 04/27/2018 Diagnosis 05/23/2018 [facility] Acute bronchospasm 04/27/2018 Diagnosis 05/23/2018 [facility] Upper respiratory infection 04/27/2018 Diagnosis 05/23/2018 [facility] Pain in throat 04/27/2018 Diagnosis 05/23/2018 [facility] Screening for disorder 04/27/2018 Diagnosis 05/23/2018 [facility] Restless legs 04/05/2018 Diagnosis 05/01/2018 [facility] Urinary incontinence 04/05/2018 Diagnosis 05/01/2018 [facility] Hypertensive disorder 04/05/2018 Diagnosis 05/01/2018 [facility] Neck pain 04/05/2018 Diagnosis 05/01/2018 [facility] Low back pain 04/05/2018 Diagnosis 05/01/2018 [facility] Lumbar spondylosis 04/05/2018 Diagnosis 05/01/2018 [facility] Localized eruption of skin 04/05/2018 Diagnosis 05/01/2018 [facility] Alcohol consumption screening 04/05/2018 Diagnosis 05/01/2018 [facility] Depression screening 04/05/2018 Diagnosis 05/01/2018 [facility] Acute urinary tract infection 03/08/2018 Diagnosis 04/06/2018 [facility] Lumbago with sciatica 03/08/2018 Diagnosis 04/06/2018 [facility] Senile purpura 03/08/2018 Diagnosis 04/06/2018 [facility] Gastroesophageal reflux disease 03/08/2018 Diagnosis 04/06/2018 [facility] Immunization 03/08/2018 Diagnosis 04/06/2018 [facility] Contact dermatitis 02/14/2018 Diagnosis 03/09/2018 [facility] Sciatica 02/14/2018 Diagnosis 03/09/2018 [facility] Depressive disorder 02/14/2018 Diagnosis 03/09/2018 [facility] Malignant neoplasm of female breast 02/14/2018 Diagnosis 03/09/2018 [facility] Screening for osteoporosis 02/14/2018 Diagnosis 03/09/2018 [facility] Hypothyroidism 08/29/2017 Problem 05/23/2018 [facility] Hyperlipidemia 08/29/2017 Problem 05/23/2018 [facility] Hypertensive Disorder 08/29/2017 Problem 05/23/2018 [facility] Gastroesophageal Reflux Disease 08/29/2017 Problem 05/23/2018 [facility] Urge Incontinence of Urine 08/29/2017 Problem 05/23/2018 [facility] History of Malignant Neoplasm of Breast 08/29/2017 Problem 05/23/2018 [facility] History of non-Hodgkins Lymphoma 08/29/2017 Problem 05/23/2018 [facility] Incisional Hernia 06/25/2015 Problem 05/23/2018 [facility] Renal Mass 06/25/2015 Problem 05/23/2018 [facility] Malignant Neoplasm of Female Breast 06/11/2014 Problem 05/23/2018 [facility] Postherpetic Neuralgia 04/17/2012 Problem 05/23/2018 [facility] Depressive Disorder 04/17/2012 Problem 05/23/2018 [facility] Hearing Loss 04/17/2012 Problem 05/23/2018 [facility] Colitis 04/17/2012 Problem 05/23/2018 [facility] Follicular non-Hodgkin's Lymphoma 03/29/2012 Problem 05/23/2018 [facility] Medications Medication Details Route Status Patient Instructions Ordering Provider Order Date Source anastrozole 1 MG Oral Tablet anastrozole 1 mg tablet Take 1 tablet every day by oral route as directed for 30 days. Active [facility] 12 HR Bupropion Hydrochloride 150 MG Extended Release Oral Tablet bupropion HCl SR 150 mg tablet,12 hr sustained-release Take 1 tablet every day by oral route for 90 days. Active [facility] Esomeprazole 40 MG Delayed Release Oral Capsule esomeprazole magnesium 40 mg capsule,delayed release TAKE ONE CAPSULE BY MOUTH EVERY DAY Active [facility] Fenofibrate 145 MG Oral Tablet fenofibrate nanocrystallized 145 mg tablet Take 1 tablet every day by oral route for 90 days. Active [facility] gabapentin 600 MG Oral Tablet gabapentin 600 mg tablet Take 1 tablet 3 times a day by oral route as directed for 90 days. Active [facility] Cephalexin 500 MG Oral Capsule [Keflex] Keflex 500 mg capsule Take 1 capsule every 8 hours by oral route as directed for 10 days. Active [facility] 2 ML Ketorolac Tromethamine 30 MG/ML Injection ketorolac 60 mg/2 mL intramuscular solution Inject 2 mL as needed by intramuscular route. Active [facility] Levothyroxine Sodium 0.088 MG Oral Tablet levothyroxine 88 mcg tablet Take 1 tablet every day by oral route for 90 days. Active [facility] Lidocaine 0.05 MG/MG Medicated Patch lidocaine 5 % topical patch APPLY 1 PATCH(S) TOPICALLY TWICE A DAY NEEDED Active [facility] meloxicam 15 MG Oral Tablet meloxicam 15 mg tablet Take 1 tablet every day by oral route as needed for 30 days. Active [facility] 24 HR metoprolol succinate 25 MG Extended Release Oral Tablet metoprolol succinate ER 25 mg tablet,extended release 24 hr Take 1 tablet every day by oral route for 90 days. Active [facility] 24 HR Oxybutynin chloride 10 MG Extended Release Oral Tablet oxybutynin chloride ER 10 mg tablet,extended release 24 hr Take 1 tablet every day by oral route. Active [facility] ropinirole 0.25 MG Oral Tablet ropinirole 0.25 mg tablet Take 2 tablets every day by oral route in the evening for 30 days. Active [facility] Simvastatin 20 MG Oral Tablet simvastatin 20 mg tablet TAKE 1 TABLET BY MOUTH EVERY DAY Active [facility] tizanidine 2 MG Oral Tablet tizanidine 2 mg tablet Take 1 tablet as needed by oral route at bedtime for 14 days. Active [facility] Triamcinolone Acetonide 0.005 MG/MG Topical Ointment triamcinolone acetonide 0.5 % topical ointment APPLY A THIN LAYER TO THE AFFECTED AREA(S) BY TOPICAL ROUTE 2 TIMES PER DAY FOR UP TO 2 WEEKS Active [facility] Acetaminophen 300 MG / Codeine Phosphate 30 MG Oral Tablet [Tylenol with Codeine] Tylenol-Codeine #3 300 mg-30 mg tablet Take 1 tablet twice a day by oral route as needed for 10 days. Active [facility] Diclofenac Sodium 0.01 MG/MG Topical Gel diclofenac 1 % topical gel Apply 1 g twice a day by topical route as needed. Active [facility] Fluticasone propionate 0.05 MG/ACTUAT Metered Dose Nasal [place] fluticasone propionate 50 mcg/actuation nasal spray,suspension SHAKE LIQUID AND USE 1 SPRAY IN EACH NOSTRIL TWICE DAILY FOR 14 DAYS DIRECTED Active [facility] Triamcinolone Acetonide 40 MG/ML Injectable Suspension [Kenalog] Kenalog 40 mg/mL suspension for injection Take 1 mL by injection route. Active [facility] 200 ACTUAT Albuterol 0.09 MG/ACTUAT Metered Dose Inhaler [ProAir] ProAir HFA 90 mcg/actuation aerosol inhaler Inhale 2 puffs every 6-8 hours by inhalation route as needed for 10 days. Active [facility] Temazepam 15 MG Oral Capsule temazepam 15 mg capsule TAKE 1 CAPSULE BY MOUTH NEEDED AT BEDTIME Active [facility] benzonatate 100 MG Oral Capsule [Tessalon Perles] Tessalon Perles 100 mg capsule Take 1 capsule 3 times a day by oral route as needed for 10 days. Active [facility] Azithromycin 250 MG Oral Tablet Zithromax Z-Adalberto 250 mg tablet TAKE 2 TABLETS (500 MG) BY ORAL ROUTE ONCE DAILY FOR 1 DAY THEN 1 TABLET (250 MG) BY ORAL ROUTE ONCE DAILY FOR 4 DAYS Active [facility] Ergocalciferol 70394 UNT Oral Capsule Vitamin D2 50,000 unit capsule Take 1 capsule every week by oral route as directed for 56 days. Active [facility] Alprazolam 0.25 MG Oral Tablet alprazolam 0.25 mg tablet Take 1 tablet as needed by oral route at bedtime for 20 days. Active [facility] Alprazolam 0.5 MG Oral Tablet alprazolam 0.5 mg tablet Take 1 tablet as needed by oral route at bedtime for 30 days. Active [facility] Allergies, Adverse Reactions, Alerts Substance Category Reaction Severity Reaction type Status Date Reported Comments Source Trazodone Allergy to substance 08/29/2017 [facility] Tizanidine Allergy to substance 04/05/2018 [facility] Immunizations Immunization Date Given Site Status Last Updated Comments Source influenza, high dose seasonal 03/08/2018 completed [facility] pneumococcal conjugate PCV 13 08/29/2017 completed [facility] pneumococcal, unspecified formulation 02/07/2015 completed [facility] zoster 02/07/2014 completed [facility] Results Order Name Results Value Reference Range Date Interpretation Comments Source Hepatitis C virus RNA [Units/volume] (viral load) in Serum or Plasma by Probe and target amplification method hepatitis C antibody non-reactive non 04/28/2018 normal [facility] Hepatitis C virus RNA [Units/volume] (viral load) in Serum or Plasma by Probe and target amplification method signal to cut-off 0.01 <1.00 04/28/2018 normal [facility] Comprehensive metabolic 1999 panel - Serum or Plasma ALT 24 0 - 55 04/27/2018 [facility] Comprehensive metabolic 1999 panel - Serum or Plasma AST 21 5 - 34 04/27/2018 [facility] Comprehensive metabolic 1999 panel - Serum or Plasma BUN 16.2 9.8 - 20.1 04/27/2018 [facility] Comprehensive metabolic 1999 panel - Serum or Plasma alk phos 91 40 - 150 04/27/2018 [facility] Comprehensive metabolic 1999 panel - Serum or Plasma glucose 103 70 - 99 04/27/2018 high [facility] Comprehensive metabolic 1999 panel - Serum or Plasma albumin 3.9 3.5 - 5.0 04/27/2018 [facility] Comprehensive metabolic 1999 panel - Serum or Plasma creatinine 0.82 0.57 - 1.11 04/27/2018 [facility] Comprehensive metabolic 1999 panel - Serum or Plasma eGFR non- >60 04/27/2018 [facility] Comprehensive metabolic 1999 panel - Serum or Plasma total bilirubin 0.9 0.2 - 1.2 04/27/2018 [facility] Comprehensive metabolic 1999 panel - Serum or Plasma eGFR - >60 04/27/2018 [facility] Comprehensive metabolic 1999 panel - Serum or Plasma sodium 143 136 - 145 04/27/2018 [facility] Comprehensive metabolic 1999 panel - Serum or Plasma potassium 3.8 3.5 - 5.1 04/27/2018 [facility] Comprehensive metabolic 1999 panel - Serum or Plasma chloride 104 98 - 107 04/27/2018 [facility] Comprehensive metabolic 1999 panel - Serum or Plasma total protein 6.9 6.4 - 8.3 04/27/2018 [facility] Comprehensive metabolic 1999 panel - Serum or Plasma calcium 9.6 8.4 - 10.2 04/27/2018 [facility] Comprehensive metabolic 1999 panel - Serum or Plasma CO2 29.4 23.0 - 31.0 04/27/2018 [facility] Comprehensive metabolic 1999 panel - Serum or Plasma anion gap 10 04/27/2018 [facility] CBC W Auto Differential panel - Blood WBC 4.69 3.98 - 10.04 04/27/2018 [facility] CBC W Auto Differential panel - Blood RBC 4.09 3.93 - 5.22 04/27/2018 [facility] CBC W Auto Differential panel - Blood hemoglobin 12.10 11.20 - 15.70 04/27/2018 [facility] CBC W Auto Differential panel - Blood hematocrit 37.4 34.1 - 44.9 04/27/2018 [facility] CBC W Auto Differential panel - Blood MCV 91.4 80.0 - 100.0 04/27/2018 [facility] CBC W Auto Differential panel - Blood MCH 29.6 25.6 - 32.2 04/27/2018 [facility] CBC W Auto Differential panel - Blood MCHC 32.4 32.2 - 35.5 04/27/2018 [facility] CBC W Auto Differential panel - Blood RDW-SD 51.5 36.4 - 46.3 04/27/2018 [facility] CBC W Auto Differential panel - Blood platelet count 218.0 182.0 - 369.0 04/27/2018 [facility] CBC W Auto Differential panel - Blood MPV 11.6 7.5 - 11.5 04/27/2018 [facility] CBC W Auto Differential panel - Blood neut% 42.5 34.0 - 71.1 04/27/2018 [facility] CBC W Auto Differential panel - Blood lymph% 40.7 19.3 - 51.7 04/27/2018 [facility] CBC W Auto Differential panel - Blood mon% 15.1 4.7 - 12.5 04/27/2018 [facility] CBC W Auto Differential panel - Blood eos% 1.3 0.7 - 5.8 04/27/2018 [facility] CBC W Auto Differential panel - Blood baso% 0.4 0.1 - 1.2 04/27/2018 [facility] CBC W Auto Differential panel - Blood neut# 2.0 1.6 - 6.1 04/27/2018 [facility] CBC W Auto Differential panel - Blood lymph# 1.9 1.2 - 3.7 04/27/2018 [facility] CBC W Auto Differential panel - Blood mon# 0.7 0.2 - 0.9 04/27/2018 [facility] CBC W Auto Differential panel - Blood eos# 0.06 0.04 - 0.36 04/27/2018 [facility] CBC W Auto Differential panel - Blood baso# 0.02 0.01 - 0.08 04/27/2018 [facility] 25-Hydroxyvitamin D [Mass/volume] in Serum or Plasma vitamin D 25OH 16.6 30.0 - 96.0 04/27/2018 [facility] Thyrotropin [Units/volume] in Serum or Plasma TSH 0.142 0.350 - 4.940 04/27/2018 low [facility] Strep negative 04/27/2018 [facility] Urinalysis macro (dipstick) panel - Urine Color Color yellow 04/05/2018 [facility] Urinalysis macro (dipstick) panel - Urine Color Appearance clear 04/05/2018 [facility] Urinalysis macro (dipstick) panel - Urine Color Glucose negative 04/05/2018 [facility] Urinalysis macro (dipstick) panel - Urine Color Bilirubin negative 04/05/2018 [facility] Urinalysis macro (dipstick) panel - Urine Color Ketones negative 04/05/2018 [facility] Urinalysis macro (dipstick) panel - Urine Color Specific [place] 1.010 04/05/2018 [facility] Urinalysis macro (dipstick) panel - Urine Color Blood negative 04/05/2018 [facility] Urinalysis macro (dipstick) panel - Urine Color PH 6.0 04/05/2018 [facility] Urinalysis macro (dipstick) panel - Urine Color Protein negative 04/05/2018 [facility] Urinalysis macro (dipstick) panel - Urine Color Urobilinogen 0.2 04/05/2018 [facility] Urinalysis macro (dipstick) panel - Urine Color Nitrites negative 04/05/2018 [facility] Urinalysis macro (dipstick) panel - Urine Color Leukocytes negative 04/05/2018 [facility] Urinalysis macro (dipstick) panel - Urine Color Color yellow 04/05/2018 [facility] Urinalysis macro (dipstick) panel - Urine Color Appearance clear 04/05/2018 [facility] Urinalysis macro (dipstick) panel - Urine Color Glucose negative 04/05/2018 [facility] Urinalysis macro (dipstick) panel - Urine Color Bilirubin negative 04/05/2018 [facility] Urinalysis macro (dipstick) panel - Urine Color Ketones negative 04/05/2018 [facility] Urinalysis macro (dipstick) panel - Urine Color Specific [place] 1.010 04/05/2018 [facility] Urinalysis macro (dipstick) panel - Urine Color Blood negative 04/05/2018 [facility] Urinalysis macro (dipstick) panel - Urine Color PH 6.0 04/05/2018 [facility] Urinalysis macro (dipstick) panel - Urine Color Protein negative 04/05/2018 [facility] Urinalysis macro (dipstick) panel - Urine Color Urobilinogen 0.2 04/05/2018 [facility] Urinalysis macro (dipstick) panel - Urine Color Nitrites negative 04/05/2018 [facility] Urinalysis macro (dipstick) panel - Urine Color Leukocytes negative 04/05/2018 [facility] Urinalysis complete W Reflex Culture panel - Urine color yellow yellow 03/09/2018 normal [facility] Urinalysis complete W Reflex Culture panel - Urine appearance cloudy clear 03/09/2018 abnormal [facility] Urinalysis complete W Reflex Culture panel - Urine specific gravity 1.014 1.001 - 1.035 03/09/2018 normal [facility] Urinalysis complete W Reflex Culture panel - Urine pH 7.0 5.0 - 8.0 03/09/2018 normal [facility] Urinalysis complete W Reflex Culture panel - Urine glucose negative negative 03/09/2018 normal [facility] Urinalysis complete W Reflex Culture panel - Urine bilirubin negative negative 03/09/2018 normal [facility] Urinalysis complete W Reflex Culture panel - Urine ketones negative negative 03/09/2018 normal [facility] Urinalysis complete W Reflex Culture panel - Urine occult blood negative negative 03/09/2018 normal [facility] Urinalysis complete W Reflex Culture panel - Urine protein negative negative 03/09/2018 normal [facility] Urinalysis complete W Reflex Culture panel - Urine nitrite positive negative 03/09/2018 abnormal [facility] Urinalysis complete W Reflex Culture panel - Urine leukocyte esterase 3+ negative 03/09/2018 abnormal [facility] Urinalysis complete W Reflex Culture panel - Urine WBC 20-40 < or=5 03/09/2018 abnormal [facility] Urinalysis complete W Reflex Culture panel - Urine RBC 0-2 < or=2 03/09/2018 normal [facility] Urinalysis complete W Reflex Culture panel - Urine squamous epithelial cells 0-5 < or=5 03/09/2018 [facility] Urinalysis complete W Reflex Culture panel - Urine bacteria many none seen 03/09/2018 abnormal [facility] Urinalysis complete W Reflex Culture panel - Urine hyaline cast none seen none seen 03/09/2018 normal [facility] Urinalysis complete W Reflex Culture panel - Urine comments few mucous threads 03/09/2018 [facility] Urinalysis complete W Reflex Culture panel - Urine reflexive urine culture culture indicated - results to follow 03/09/2018 [facility] Urinalysis macro (dipstick) panel - Urine Color Color yellow 03/08/2018 [facility] Urinalysis macro (dipstick) panel - Urine Color Appearance cloudy 03/08/2018 [facility] Urinalysis macro (dipstick) panel - Urine Color Glucose negative 03/08/2018 [facility] Urinalysis macro (dipstick) panel - Urine Color Bilirubin negative 03/08/2018 [facility] Urinalysis macro (dipstick) panel - Urine Color Ketones negative 03/08/2018 [facility] Urinalysis macro (dipstick) panel - Urine Color Specific [place] 1.015 03/08/2018 [facility] Urinalysis macro (dipstick) panel - Urine Color Blood negative 03/08/2018 [facility] Urinalysis macro (dipstick) panel - Urine Color PH 7.0 03/08/2018 [facility] Urinalysis macro (dipstick) panel - Urine Color Protein negative 03/08/2018 [facility] Urinalysis macro (dipstick) panel - Urine Color Urobilinogen 0.2 03/08/2018 [facility] Urinalysis macro (dipstick) panel - Urine Color Nitrites positive 03/08/2018 [facility] Urinalysis macro (dipstick) panel - Urine Color Leukocytes moderate 03/08/2018 [facility] Pathology Reports No Data Provided for This Section Diagnostic Reports No Data Provided for This Section Consultation Notes No Data Provided for This Section Discharge Summaries No Data Provided for This Section History and Physicals No Data Provided for This Section Vital Signs Vital Sign Value Date Comments Source Diastolic (mm Hg) 80 05/19/2018 [facility] Height 60.6 05/19/2018 [facility] ADM Date DC Date Status Source Outpatient [id number] NANCY PALMER 02/19/2016 Active [facility] [id number] [facility] 02/26/2016 Active [facility] [id number] [facility] 03/08/2016 Active [facility] [id number] [facility] 03[facility]19/2016 Active [facility] [id number] [facility] 04/13/2016 Active [facility] [id number] [facility] 04[facility]13/2016 Active [facility] [id number] [facility] 05/04/2016 Active [facility] [id number] [facility] 05/10/2016 Active [facility] [id number] [facility] 05/13/2016 Active [facility] [id number] [facility] 05/21/2016 Active [facility] [id number] [facility] 06/04/2016 Active [facility] [id number] [facility] 06/08/2016 Active [facility] [id number] [facility] 10/25/2017 Active [facility] [place] - [facility] - [facility] Johnny Vargas MD: [address] [place] [address], Ph. [phone] Johnny Vargas 02/14/[address] [facility] [place] - [facility] Johnny A. Michael Vargas MD: [address] [place] [address], Ph. [id number] Johnny Rodriguez Sam 03/08/[address] [facility] [place] - [facility] Johnny A. Michael Vargas MD: [address] [place] [address], Ph. [id number] Johnny Vargas 03/08/2018 [facility] [place] - [facility] Johnny A. Michael Vargas MD: [address] [place] [address], Ph. [id number] Johnny Vargas 04/05/[address] [facility] [place] - [facility] Johnny A. Michael Vargas MD: [address] [place] [address], Ph. [id number] Johnnybrigitte Vargas 04/05/[address] [facility] [place] - [facility] Johnny A. Michael Vargas MD: [address] [place] [address], Ph. [phone] Johnny Vargas 04/05/[address] [facility] [place] - [facility] [place] Johnny A. Michael Vargas MD: [address] [place] [address], Ph. [id number] Johnnyromero Rodriguez Sam 04/27/[address] [facility] [place] - [facility] Practice - [place] Johnny A. Michael Vargas MD: [address] [place] [address], Ph. [id number] Johnny Rodriguez Sam 04/27/[address] [facility] [place] - [facility] Practice - [place] Johnny A. Michael Vargas MD: [address] [place] [phone], Ph. [id number] Johnny Rodriguez Sam 04/27/[address] [facility] [place] - [facility] Practice - [place] Johnny A. Michael Vargas MD: [address] [place] [phone], Ph. [id number] Johnnyromero Vargas 05/01/[address] [facility] Practice - [place] Johnny A. Michael Vargas MD: [address] [place] [phone], Ph. [id number] Johnny Rodriguez Sam 05/01/[address] [facility] [place] - [facility] - [place] Johnny A. Michael Vargas MD: [address] [place] [address], Ph. [id number] Johnny Vargas 05/19/2018 [facility] Procedures Procedure Code Date Perfomer Comments Source bone density 02/22/2018 [facility] Hernia Repair 02/07/2013 [facility] Colonoscopy 02/08/2012 [facility] Assessment and Plan No Data Provided for This Section Plan of Care No Data Provided for This Section Social History Social History Date Source Smoking Status Never Smoker 08/29/2017 [facility] Family History No Data Provided for This Section Advance Directives No Data Provided for This Section Functional Status No Data Provided for This Section
--- NOTE | 2018-10-17 14:45 | NUR ---
PATIENT'S REQUESTING A PILLOW FOR THE PATIENT. PATIENT PROVIDED WITH A PILLOW AT THIS TIME AND REPOSITIONED FOR COMFORT. PATIENTS' WITH QUESTIONS ABOUT IF IT IS SAFE TO PARK HIS TRUCK OUT FRONT OVER NIGHT, EXPLAINED TO THAT THERE WAS SECURITY ON SITE. ASKING WHEN THE PATIENT WILL GET A ROOM ASSIGNMENT. EXPLAINED TO PATIENT AND THAT THERE WERE SEVERAL PATIENTS WAITING AT THIS TIME, BUT THAT EVERY EFFORT WAS BEING MADE TO GET PATIENTS ROOMS SOON POSSIBLE.
--- NOTE | 2018-10-17 15:56 | NUR ---
PATIENT PROVIDED WITH WARM BLANKET AT THIS TIME; TEMP 98.9. PATIENT REPOSITIONED FOR COMFORT AND PROVIDED WITH BELONGINGS BAG PER REQUEST.
[2018-10-17] MEDS ORDERED: POTASSIUM CHLORIDE 20 MEQ TAB CR PO NR (16:30)
[2018-10-17] MEDS ORDERED: CEFTRIAXONE SOD 1 GM/NS 50 ML 50 ML IV SCH (16:30)
[2018-10-17] MEDS ORDERED: ONDANSETRON HCL INJ 2MG/ML 2ML 2 MG/ML VIAL IV NR (16:30)
[2018-10-17] MEDS ORDERED: FAMOTIDINE 20 MG/2 ML VIAL IV NR (16:30)
[2018-10-17 16:41] LABS: BILIRUBIN,URINE NEGATIVE (NEGATIVE); CLARITY,URINE CLEAR (CLEAR); COLOR,URINE YELLOW (YELLOW); KETONES,URINE NEGATIVE (NEGATIVE); LEUKOCYTE ESTERASE ,URINE SMALL (NEGATIVE); NITRITE,URINE POSITIVE (NEGATIVE); PROTEIN,URINE DIPSTICK NEGATIVE (NEGATIVE); URINE UROBILINOGEN 0.2 mg/dL (0.2 - 1)
[2018-10-17] MEDS: SODIUM CHLORIDE 0.9% 1000ML 1,000 ML IV SCH (16:42)
[2018-10-17 16:54] LABS: BACTERIA,URINE MANY /HPF; RBC,URINE 0-5 /HPF (0-5)
--- NOTE | 2018-10-17 17:11 | NUR ---
RECD PT FROM ER VIA STRETCHER ,AAOX3,DENIES PAIN O2 2L NC IN PLACE SATS 92% ON RA.IV INFUSING TO LT FA.,HOB ELEVATED ,NEB TRMT GIVEN
[2018-10-17] MEDS: IPRATROPIUM BROMIDE 0.02% 2.5 ML NEB NEB SCH ×2 (17:20→19:45)
[2018-10-17 17:28] VITALS: BP 137/65
[2018-10-17 19:00] VITALS: BP 137/65
--- NOTE | 2018-10-17 19:25 | NUR ---
Patient visited in room during nursing rounds. Patient alert and oriented x3. Pt hard of hearing on both ears. at bedside. Pt on IVF (NS at 125ml/hr) and on scheduled IV antibiotics. Pt up with assist to use bedside commode prn. Call mejia within reach.
[2018-10-17 19:43] LABS: LYMPHOCYTES % (MANUAL) 9 % (19-48); METAMYELOCYTES % (MANUAL) 1 % (0-0); MONOCYTES % (MANUAL) 13 % (3.4-9.0); NEUTROPHILS % (MANUAL) 72 % (40-74)
[2018-10-17 19:44] LABS: MICROCYTOSIS SLIGHT; PLATELET ESTIMATE ADEQUATE; PLATELET MORPHOLOGY COMMENT NORMAL; RBC MORPHOLOGY COMMENT NORMAL; STOMATOCYTES SLIGHT
[2018-10-17 20:00] VITALS: BP 123/78
[2018-10-17 22:29] LABS: CREATINE KINASE MB 1.3 ng/mL (0-5.0)
[2018-10-17] MEDS: ACETAMINOPHEN 325 MG TAB PO PRN (23:42)
[2018-10-18] VITALS (7 sets, daily range): BP systolic 133–137; BP diastolic 60–72
[2018-10-18] MEDS: SODIUM CHLORIDE 0.9% 1000ML 1,000 ML IV SCH ×2 (02:50→12:41)
[2018-10-18] MEDS: ALBUTEROL SULF 0.083% NEB SOLN 3 ML NEB NEB SCH ×3 (04:05→11:00)
[2018-10-18] MEDS: IPRATROPIUM BROMIDE 0.02% 2.5 ML NEB NEB SCH ×3 (04:05→11:00)
[2018-10-18 05:56] LABS: BASOPHILS % 0.2 % (0.0-1.0); EOSINOPHILS % 0.2 % (0.0-6.0); HEMATOCRIT 31.7 % (34.2-44.1); HEMOGLOBIN 10.4 g/dL (12.0-16.0); LYMPHOCYTES # (AUTO) 2.1 (1.0-3.2); LYMPHOCYTES % 22.8 % (18.0-39.1); MEAN CORPUSCULAR HEMOGLOBIN 31.2 pg (28-32); MEAN CORPUSCULAR HGB CONC 32.8 g/dL (31-35); MEAN CORPUSCULAR VOLUME 95.2 fL (81-99); MONOCYTES % 10.5 % (4.4-11.3); NEUTROPHILS # (AUTO) 6.1 (2.1-6.9); PLATELET COUNT 167 x10e3/uL (140-360); RED BLOOD COUNT 3.33 x10e6/uL (3.6-5.1); RED CELL DISTRIBUTION WIDTH 16.2 % (11.7-14.4)
[2018-10-18 06:25] LABS: ALANINE AMINOTRANSFERASE 17 IU/L (0-55); ALBUMIN 2.7 g/dL (3.5-5.0); ALKALINE PHOSPHATASE 71 IU/L (40-150); ANION GAP 10.5 mmol/L (8-16); BLOOD UREA NITROGEN 9 mg/dL (7-26); BUN/CREATININE RATIO 12 (6-25); CALCIUM 8.6 mg/dL (8.4-10.2); CARBON DIOXIDE 26 mmol/L (22-29); CHLORIDE 107 mmol/L (98-107); CREATININE, SERUM 0.78 mg/dL (0.57-1.11); EST GLOMERULAR FILTRATION RATE > 60 ML/MIN (60-); GLUCOSE 108 mg/dL (74-118); POTASSIUM 3.5 mmol/L (3.5-5.1); SODIUM 140 mmol/L (136-145)
[2018-10-18 06:45] LABS: CREATINE KINASE 125 IU/L (29-168)
--- NOTE | 2018-10-18 07:25 | Diagnostic Imaging Report ---
Chest, 1 view History: Pneumonia. Comparison: CT abdomen/pelvis 10/17/18. Findings: Persistent patchy opacity in the left lower lung. No evidence of pleural effusion or pneumothorax. The cardiomediastinal silhouette is unremarkable. No acute osseous abnormality. Impression: Persistent patchy left lower lung opacity, suggestive of pneumonia. Signed by: Dr. Jose Karimi MD on 10/18/2018 7:22 AM
[2018-10-18] MEDS: ACETAMINOPHEN 325 MG TAB PO PRN (12:24)
--- NOTE | 2018-10-18 13:59 | NUR ---
Nutrition Screen Note RD Recommendation for Physician: - Continue diet as ordered Plan of Care: RD following, monitoring for tolerance and adequacy Nutrition reason for involvement: Nutrition Risk Trigger - MST Primary Diagnose(s): fever, hypokalemia, PNA, weakness PMH: none indicated in chart Ht: 64in Wt: 166.03lb BMI: 28.5kg/m2 IBW: 120lb +/- 10% RD Assessment: (10/18) Chart reviewed. Labs and meds reviewed. 73yo F, who was admitted for fever, hypokalemia, PNA, and weakness. CXR suggested PNA. Visited pt in the room. Pt was sleeping; was on bedside to provide hx. 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 Weight has been stable. Pt complained of some nausea this AM but no vomiting episode. No chewing or swallowing difficulty reported. No other concern at this time. Will continue to monitor and follow. Current Diet: cardiac diet Malnutrition Evaluation (10/18/2018) The patient does not meet criteria for a specified degree of malnutrition at this time. Will re-evaluate at follow-up as appropriate. Diet Education Needs Assessment: Diet education not indicated. Nutrition Care Level: low Signed: Jil Calixto, MS, RD, LD
[2018-10-18] MEDS: AZITHROMYCIN 500MG/SOD CHL 0.9% 250ML BAG IV SCH (16:00)
[2018-10-18] MEDS ORDERED: ALBUTEROL/IPRATROPIUM 3 ML NEB NEB PRN (16:30)
[2018-10-18] MEDS ORDERED: BENZONATATE 100 MG CAP PO PRN (16:30)
[2018-10-18] MEDS ORDERED: GABAPENTIN 200 MG PO SCH (16:30)
--- NOTE | 2018-10-18 17:03 | NUR ---
PROVIDED ROLLING WALKER TO PT FOR SAFE DISCHARGE, OBTAINED SIGNATURES AND WILL FILE IN PACU FOR PROCESSING
[2018-10-18] MEDS: GABAPENTIN 100 MG CAP PO SCH ×2 (17:50→21:00)
[2018-10-18] MEDS: ENOXAPARIN SOD INJ 40 MG/0.4 ML SYR SC SCH (17:50)
[2018-10-18] MEDS: PIPER-TAZ 3.375 GM 50 ML IV SCH (17:50)
[2018-10-18] MEDS: HYDROCODONE/APAP 10MG-325MG TAB PO PRN (17:51)
--- NOTE | 2018-10-18 19:12 | NUR ---
Bedside report given to night nurse. Patient in stable condition. No c/o of pain or signs of distress at this time. All safety measures in place. Family at bedside.
--- NOTE | 2018-10-18 19:15 | NUR ---
PT IS RESTING IN BED WITH AT BEDSIDE. RESPIRATION IS EVEN AND UNEVEN LABORED, NO DISTRESS NOTED. BED IN IN THE LOWEST POSITION, LOCKED, AND CALL LIGHT WITHIN REACH. WILL CONTINUE TO MONITOR.
[2018-10-18] MEDS: ALBUTEROL/IPRATROPIUM 3 ML NEB NEB SCH (19:25)
[2018-10-18] MEDS: OXYBUTYNIN CHLORIDE 5 MG TAB PO SCH (21:00)
[2018-10-18] MEDS: TEMAZEPAM 15 MG CAP PO PRN (22:24)
--- NOTE | 2018-10-18 23:54 | History and Physical ---
PRIMARY CARE PHYSICIAN: Dr. Johnny Vargas, [facility] physician. CHIEF COMPLAINT: Fever, shortness of breath, and cough. HISTORY OF PRESENT ILLNESS: The patient is a 73-year-old female experienced time for the past few days with shortness of breath and cough. She also has sweating and fever. The patient came to the emergency room for further evaluation. She also has incontinent of urine. She was found to have urinary tract infection and positive for lactic acidosis associated with WBC of 14.4 thousand and imaging tests done showed that the patient has lingular and left lower lobe pneumonia. The patient is otherwise stable at this time. The sweating and the cough and fever have significantly subsided. The patient has some chronic pain of the shoulder and lower back. The patient was taken Tylenol No. 3 outside for pain, which did not relieve due to exacerbation of her problem. PAST MEDICAL HISTORY: Hypertension, lymphoma in remission, dyslipidemia, obesity, hard of hearing, and reflux and history of shingles. PAST SURGICAL HISTORY: Hysterectomy, abdominal hernia repair, left breast lymph node biopsy, and bone marrow biopsy. SOCIAL HISTORY: The patient does not smoke or use alcohol. No regular drugs. ALLERGIES: TO NO KNOWN ALLERGIES. HOME MEDICATIONS: The patient is on Nexium, fenofibrate, gabapentin, levothyroxine, metoprolol, oxybutynin, and oxycodone. PHYSICAL EXAMINATION: VITAL SIGNS: Temperature is 99.6, blood pressure 101/56, pulse rate 97, and respirations 18. GENERAL: The patient is not in acute distress. She is awake. HEENT: Normocephalic and atraumatic. Pupils reactive. Anicteric. NECK: Supple grossly. PULMONARY: Diminished breath sounds bilaterally, worse on the left compared to the right. CARDIOVASCULAR: S1, S2. Regular rate and rhythm. ABDOMEN: Obese. EXTREMITIES: No cyanosis or edema. NEUROLOGIC EXAM: No gross focal deficit. LABORATORY: WBC 14.4, hemoglobin 12.9, hematocrit is 38, and platelets is 205. Chemistry; sodium 139, potassium 3.4, chloride 98, bicarb 28, BUN is 15, creatinine 0.9, glucose is 121. Lactic acid is 24.5. Cardiac enzymes negative TSH is 0.16. CT scan of abdomen and pelvis and chest x-ray consistent with left lingular pneumonia. IMPRESSION: 1. Sepsis without shock. 2. Pneumonia community acquired, lingular and left lower lobe pneumonia. 3. Urinary tract infection. Urinalysis has shown many bacteria with WBC of 20, positive for nitrite. 4. Influenza A and B negative. PLAN: Continue with antibiotics. IV fluids gently. Resume home medication. Pain control. DVT prophylaxis. Consultation with Dr. Mercedes for the pneumonia. MD RENETTA Bailey/STEVEN /[id number]
[2018-10-19] VITALS (9 sets, daily range): BP systolic 123–186; BP diastolic 60–99
[2018-10-19] MEDS: PIPER-TAZ 3.375 GM 50 ML IV SCH ×4 (00:22→18:08)
[2018-10-19] MEDS: SODIUM CHLORIDE 0.9% 1000ML 1,000 ML IV SCH ×3 (00:22→15:31)
[2018-10-19] MEDS: ALBUTEROL/IPRATROPIUM 3 ML NEB NEB SCH ×4 (00:55→18:45)
[2018-10-19] MEDS: GABAPENTIN 100 MG CAP PO SCH ×3 (05:21→21:00)
[2018-10-19] MEDS: LEVOTHYROXINE SODIUM 75 MCG TAB PO SCH (05:21)
[2018-10-19] MEDS: HYDROCODONE/APAP 10MG-325MG TAB PO PRN ×2 (05:33→10:36)
[2018-10-19 05:46] LABS: BASOPHILS % 0.3 % (0.0-1.0); EOSINOPHILS # (AUTO) 0.1 (0.0-0.4); EOSINOPHILS % 1.1 % (0.0-6.0); HEMATOCRIT 31.7 % (34.2-44.1); HEMOGLOBIN 10.3 g/dL (12.0-16.0); LYMPHOCYTES # (AUTO) 1.5 (1.0-3.2); LYMPHOCYTES % 23.6 % (18.0-39.1); MEAN CORPUSCULAR HGB CONC 32.5 g/dL (31-35); MEAN CORPUSCULAR VOLUME 95.5 fL (81-99); MONOCYTES # (AUTO) 0.8 (0.2-0.8); MONOCYTES % 12.8 % (4.4-11.3); NEUTROPHILS # (AUTO) 3.9 (2.1-6.9); NEUTROPHILS % 61.9 % (38.7-80.0); PLATELET COUNT 167 x10e3/uL (140-360); RED BLOOD COUNT 3.32 x10e6/uL (3.6-5.1)
[2018-10-19 06:14] LABS: ANION GAP 11.2 mmol/L (8-16); BLOOD UREA NITROGEN 6 mg/dL (7-26); BUN/CREATININE RATIO 8 (6-25); CALCIUM 8.9 mg/dL (8.4-10.2); CARBON DIOXIDE 27 mmol/L (22-29); CHLORIDE 105 mmol/L (98-107); CREATININE, SERUM 0.77 mg/dL (0.57-1.11); EST GLOMERULAR FILTRATION RATE > 60 ML/MIN (60-); GLUCOSE 89 mg/dL (74-118); POTASSIUM 3.2 mmol/L (3.5-5.1); SODIUM 140 mmol/L (136-145)
--- NOTE | 2018-10-19 07:26 | NUR ---
Received bedside report from night nurse. Morning rounding completed. Patient resting in bed, no c/o of pain or signs of distress at this time. All safety measures in place. Will continue to monitor.
[2018-10-19] MEDS ORDERED: REGADENOSON 0.4 MG/5 ML SYR IV ONE (07:57)
[2018-10-19] MEDS: METOPROLOL TARTRATE 25 MG TAB PO SCH (09:53)
[2018-10-19] MEDS: PANTOPRAZOLE SOD 40 MG TABEC PO SCH (09:53)
--- NOTE | 2018-10-19 13:44 | NUR ---
Patient reports constipation and episodes of nausea and vomiting. Paged Dr. Blanco to ask for orders. Awaiting return call.
--- NOTE | 2018-10-19 15:32 | Consultation ---
DATE OF CONSULTATION: Pulmonary Consultation REASON FOR CONSULT: Pneumonia. HISTORY OF PRESENT ILLNESS: Ms. Lima is a 73-year-old female, she presented with fever, shortness of breath, and cough. The patient had lactic acidosis. UA suggestive of urinary tract infection as well with 11 to 20 wbc's. Chest x-ray was suggestive of left lower lobe opacity. The patient's T-max was 100.1 in the emergency room. White cell count of 14,000 with a lactic acid of 24.5. She was started on IV antibiotic and admitted to the floor. Blood pressure remained stable. She is feeling better. She denies any nausea, vomiting, or chest pain. She still has cough and occasional wheezing. REVIEW OF SYSTEMS: GENERAL: Denies any fever or chills. HEAD: Denies any head trauma. ENT: Denies any earaches. CVS: Denies any chest pain. RESPIRATORY: Shortness of breath. The rest of the review of systems are negative except as in HPI. PAST MEDICAL HISTORY: Hypertension, lymphoma in remission, hyperlipidemia, obesity, and hearing loss. PAST SURGICAL HISTORY: Hysterectomy. FAMILY AND SOCIAL HISTORY: She does not smoke. Does not drink. PHYSICAL EXAMINATION: VITAL SIGNS: Temperature 97.4, pulse of 80, blood pressure 140/74, respiratory rate of 18, and O2 saturation 92%. HEENT: Head is atraumatic, normocephalic. NECK: Supple. CHEST: Crackles in the bases. HEART: S1, S2 audible. ABDOMEN: Soft. EXTREMITIES: No pedal edema. NEUROLOGIC: Awake and alert. IMAGING: Chest x-ray, I have reviewed the images, showing left lower lobe infiltrate. ASSESSMENT AND PLAN: A 73-year-old female admitted with pneumonia and urinary tract infection. PLAN: 1. Continue the patient on IV antibiotics. Oxygen as needed to keep the O2 saturation more than or equal to 92%. 2. Continue IV hydration. I will recheck labs and lactic acid. MD CHARBEL Gore/STEVEN /[id number]
[2018-10-19] MEDS: ENOXAPARIN SOD INJ 40 MG/0.4 ML SYR SC SCH (16:07)
[2018-10-19] MEDS: AZITHROMYCIN 500MG/SOD CHL 0.9% 250ML BAG IV SCH (16:07)
--- NOTE | 2018-10-19 16:47 | NUR ---
Paged Dr. Blanco again regarding patient's earlier request for medication for constipation and n/v. Awaiting return call.
[2018-10-19] MEDS ORDERED: BISACODYL 10 MG SUPP PR PRN (17:45)
[2018-10-19] MEDS ORDERED: MAGNESIUM HYDROXIDE 30 ML UDC PO PRN (17:45)
[2018-10-19] MEDS ORDERED: ONDANSETRON HCL INJ 2MG/ML 2ML 2 MG/ML VIAL IV PRN (17:45)
--- NOTE | 2018-10-19 17:55 | NUR ---
Rounded with Dr. Blanco and addressed patient's requests for constipation and n/v medication.
[2018-10-19] MEDS: SENNOSIDES 8.6 MG TAB PO SCH (18:15)
[2018-10-19] MEDS ORDERED: POTASSIUM CHLORIDE 20 MEQ TAB CR PO ONE (18:20)
--- NOTE | 2018-10-19 19:00 | NUR ---
patient received awake, alert, lying quietly in bed. no c/o pain noted at this time. pm assessment complete. patient instructed to call for assistance when needed.
--- NOTE | 2018-10-19 19:16 | NUR ---
Bedside report given to night nurse. All safety measures in place.
[2018-10-19] MEDS: OXYBUTYNIN CHLORIDE 5 MG TAB PO SCH (20:53)
--- NOTE | 2018-10-19 23:16 | NUR ---
Received patient from Nurse Yi, patient is stable.
[2018-10-20] VITALS (8 sets, daily range): BP systolic 121–190; BP diastolic 68–92
[2018-10-20] MEDS ORDERED: HYDRALAZINE HCL 10 MG TAB PO PRN
[2018-10-20] MEDS: PIPER-TAZ 3.375 GM 50 ML IV SCH ×4 (00:02→18:00)
[2018-10-20] MEDS: ALBUTEROL/IPRATROPIUM 3 ML NEB NEB SCH ×4 (00:50→20:33)
[2018-10-20] MEDS: TEMAZEPAM 15 MG CAP PO PRN ×2 (01:04→21:50)
[2018-10-20] MEDS: HYDRALAZINE HCL 25 MG TAB PO PRN (01:04)
[2018-10-20 06:36] LABS: BASOPHILS % 0.6 % (0.0-1.0); EOSINOPHILS # (AUTO) 0.1 (0.0-0.4); EOSINOPHILS % 1.1 % (0.0-6.0); HEMATOCRIT 33.5 % (34.2-44.1); LYMPHOCYTES # (AUTO) 1.6 (1.0-3.2); LYMPHOCYTES % 24.7 % (18.0-39.1); MEAN CORPUSCULAR HEMOGLOBIN 30.8 pg (28-32); MEAN CORPUSCULAR HGB CONC 32.8 g/dL (31-35); MEAN CORPUSCULAR VOLUME 93.8 fL (81-99); MONOCYTES # (AUTO) 0.8 (0.2-0.8); MONOCYTES % 12.8 % (4.4-11.3); NEUTROPHILS # (AUTO) 3.8 (2.1-6.9); NEUTROPHILS % 60.2 % (38.7-80.0); PLATELET COUNT 206 x10e3/uL (140-360); RED BLOOD COUNT 3.57 x10e6/uL (3.6-5.1); RED CELL DISTRIBUTION WIDTH 15.5 % (11.7-14.4)
[2018-10-20] MEDS: GABAPENTIN 100 MG CAP PO SCH ×3 (06:48→20:51)
[2018-10-20] MEDS: LEVOTHYROXINE SODIUM 75 MCG TAB PO SCH (06:48)
[2018-10-20 07:05] LABS: ANION GAP 13.4 mmol/L (8-16); BLOOD UREA NITROGEN 5 mg/dL (7-26); BUN/CREATININE RATIO 7 (6-25); CALCIUM 9.6 mg/dL (8.4-10.2); CARBON DIOXIDE 28 mmol/L (22-29); CHLORIDE 101 mmol/L (98-107); CREATININE, SERUM 0.76 mg/dL (0.57-1.11); EST GLOMERULAR FILTRATION RATE > 60 ML/MIN (60-); GLUCOSE 86 mg/dL (74-118); POTASSIUM 3.4 mmol/L (3.5-5.1); SODIUM 139 mmol/L (136-145)
--- NOTE | 2018-10-20 07:15 | NUR ---
ON BEDSIDE ROUNDS PT RESTING QUIETLY. AT BEDSIDE.
[2018-10-20 07:28] LABS: MAGNESIUM 1.9 MG/DL (1.3-2.1)
--- NOTE | 2018-10-20 07:35 | NUR ---
patient endorsed to next shift for continuity of care.
[2018-10-20] MEDS: METOPROLOL TARTRATE 25 MG TAB PO SCH (09:00)
[2018-10-20] MEDS: PANTOPRAZOLE SOD 40 MG TABEC PO SCH (09:00)
[2018-10-20] MEDS: SENNOSIDES 8.6 MG TAB PO SCH ×2 (09:00→17:00)
--- NOTE | 2018-10-20 10:15 | NUR ---
DR. LEE TO SEE PT NO NEW ORDERS GIVEN.
--- NOTE | 2018-10-20 12:15 | NUR ---
EDUCATED ABOUT IMM, SIGNED, FILED IN CHART, WITH COPY LEFT WITH FAMILY AT BEDSIDE.
--- NOTE | 2018-10-20 14:00 | NUR ---
NEW IV STARTED IN RT HAND. ABX STARTED.
[2018-10-20] MEDS: AZITHROMYCIN 500MG/SOD CHL 0.9% 250ML BAG IV SCH (16:00)
[2018-10-20] MEDS: ENOXAPARIN SOD INJ 40 MG/0.4 ML SYR SC SCH (17:00)
--- NOTE | 2018-10-20 18:30 | NUR ---
NO CHANGES AT PRESENT IN PT STATUS. FAMILY REMAINS AT BEDSIDE.
--- NOTE | 2018-10-20 19:00 | NUR ---
patient received lying quietly in bed. no c/o pain noted. remains at the bedside. ivf continue to infuse without difficulty. pm assessment complete. patient/ instructed to call for assistance when needed.
[2018-10-20] MEDS: OXYBUTYNIN CHLORIDE 5 MG TAB PO SCH (20:51)
[2018-10-21] VITALS (7 sets, daily range): BP systolic 129–164; BP diastolic 77–98
[2018-10-21] MEDS ORDERED: SODIUM CHLORIDE 0.9% 250ML 250 ML ONE (00:23)
[2018-10-21] MEDS: ALBUTEROL/IPRATROPIUM 3 ML NEB NEB SCH ×4 (01:00→19:55)
[2018-10-21] MEDS: PIPER-TAZ 3.375 GM 50 ML IV SCH ×5 (06:00→23:37)
[2018-10-21] MEDS: LEVOTHYROXINE SODIUM 75 MCG TAB PO SCH (06:00)
[2018-10-21] MEDS: GABAPENTIN 100 MG CAP PO SCH ×3 (06:00→21:33)
[2018-10-21] MEDS: SENNOSIDES 8.6 MG TAB PO SCH ×4 (08:40→17:26)
[2018-10-21] MEDS: METOPROLOL TARTRATE 25 MG TAB PO SCH (08:40)
[2018-10-21] MEDS: PANTOPRAZOLE SOD 40 MG TABEC PO SCH (08:40)
--- NOTE | 2018-10-21 08:40 | NUR ---
Assessment completed at this time. Patient resting but easily awakened. Administration of medication completed as well. Patient's had questions regarding medications and diet. All questions answered. Provided menu to patient and . He stated the patient "doesn't like anything they are bringing her. She doesn't eat pancakes." I directed him to the menu and food stand manager number written on the white board. Call mejia is within reach. Bed is low and locked. Emptied bedside commode. Cleaned bathroom toilet. All needs met.
--- NOTE | 2018-10-21 10:50 | NUR ---
Patient's at the nursing station asking for towels to take a shower. Stating, "Addis would like to shower." Upon entering the room, patient denied that she asked for shower. Supplies left in restroom in case patient changes her mind.
[2018-10-21] MEDS: ACETAMINOPHEN 325 MG TAB PO PRN (14:26)
[2018-10-21] MEDS: AZITHROMYCIN 500MG/SOD CHL 0.9% 250ML BAG IV SCH (16:12)
[2018-10-21] MEDS: ENOXAPARIN SOD INJ 40 MG/0.4 ML SYR SC SCH (17:10)
--- NOTE | 2018-10-21 19:57 | NUR ---
Received change of shift report from AM nurse. Walking rounds completed.
[2018-10-21] MEDS: OXYBUTYNIN CHLORIDE 5 MG TAB PO SCH (21:00)
--- NOTE | 2018-10-22 | NUR ---
Patient in bed. Denies pain at this time. IV to right hand dry and intact. Spouse at bedside.
[2018-10-22 00:34] VITALS: BP 126/72
[2018-10-22] MEDS: ALBUTEROL/IPRATROPIUM 3 ML NEB NEB SCH ×3 (01:00→12:51)
--- NOTE | 2018-10-22 03:43 | NUR ---
Patient resting quitly at this time.
[2018-10-22 04:46] VITALS: BP 121/68
[2018-10-22] MEDS: PIPER-TAZ 3.375 GM 50 ML IV SCH ×2 (05:13→11:57)
[2018-10-22] MEDS: GABAPENTIN 100 MG CAP PO SCH ×2 (05:13→13:40)
[2018-10-22] MEDS: LEVOTHYROXINE SODIUM 75 MCG TAB PO SCH (05:13)
[2018-10-22 06:42] LABS: BASOPHILS % 0.6 % (0.0-1.0); EOSINOPHILS # (AUTO) 0.1 (0.0-0.4); EOSINOPHILS % 1.6 % (0.0-6.0); HEMATOCRIT 37.7 % (34.2-44.1); HEMOGLOBIN 12.2 g/dL (12.0-16.0); LYMPHOCYTES # (AUTO) 1.5 (1.0-3.2); LYMPHOCYTES % 29.4 % (18.0-39.1); MEAN CORPUSCULAR HEMOGLOBIN 30.5 pg (28-32); MEAN CORPUSCULAR HGB CONC 32.4 g/dL (31-35); MEAN CORPUSCULAR VOLUME 94.3 fL (81-99); MONOCYTES # (AUTO) 0.8 (0.2-0.8); MONOCYTES % 15.6 % (4.4-11.3); NEUTROPHILS # (AUTO) 2.6 (2.1-6.9); NEUTROPHILS % 51.8 % (38.7-80.0); PLATELET COUNT 225 x10e3/uL (140-360); RED CELL DISTRIBUTION WIDTH 15.9 % (11.7-14.4)
[2018-10-22 07:07] LABS: ANION GAP 14.2 mmol/L (8-16); BLOOD UREA NITROGEN 8 mg/dL (7-26); BUN/CREATININE RATIO 11 (6-25); CALCIUM 9.5 mg/dL (8.4-10.2); CARBON DIOXIDE 27 mmol/L (22-29); CHLORIDE 104 mmol/L (98-107); CREATININE, SERUM 0.75 mg/dL (0.57-1.11); EST GLOMERULAR FILTRATION RATE > 60 ML/MIN (60-); GLUCOSE 93 mg/dL (74-118); POTASSIUM 3.2 mmol/L (3.5-5.1); SODIUM 142 mmol/L (136-145)
[2018-10-22 08:00] VITALS: BP 181/98
[2018-10-22] MEDS: PANTOPRAZOLE SOD 40 MG TABEC PO SCH (08:02)
[2018-10-22] MEDS: SENNOSIDES 8.6 MG TAB PO SCH (08:06)
[2018-10-22 08:07] VITALS: BP 181/98
[2018-10-22] MEDS: METOPROLOL TARTRATE 25 MG TAB PO SCH (08:07)
[2018-10-22] MEDS: HYDRALAZINE HCL 25 MG TAB PO PRN (08:07)
--- NOTE | 2018-10-22 08:07 | NUR ---
Patient's blood pressure elevated at 181/98. Scheduled and PRN medications administered. Will recheck blood pressure in approx 1 hour.
--- NOTE | 2018-10-22 09:37 | NUR ---
Rechecked patient's blood pressure at this time; 126/84, HR 71. Patient is comfortable. at bedside. Call mejia within in reach. All needs met.
[2018-10-22 12:00] VITALS: BP 147/91
[2018-10-22] MEDS ORDERED: POTASSIUM CHLORIDE 20 MEQ TAB CR PO ONE (14:13)
[2018-10-22] MEDS ORDERED: POTASSIUM CHLORIDE 10MEQ EA PO ONE (14:30)
[2018-10-22] MEDS ORDERED: AZITHROMYCIN250 MG PO (14:52)
[2018-10-22] MEDS ORDERED: CEFDINIR300 MG PO (14:53)
[2018-10-22 15:00] VITALS: BP 150/89
--- NOTE | 2018-10-22 15:55 | NUR ---
Two duffle bags and 1 hospital belonging bag. All cabinets checked and all belongings accounted for. Patient taken to lobby via wheelchair. Ride waiting for patient that son arranged for pickup. Patient in no distress. No complaints of pain.
--- NOTE | 2018-10-23 05:06 | Discharge Summary ---
FINAL DISCHARGE DIAGNOSES: 1. Community-acquired pneumonia. 2. Sepsis secondary to underlying pneumonia and urinary tract infection. 3. Urinary tract infection. 4. Hypertension. 5. Hypokalemia, replaced. CONSULTANTS: We had a Pulmonary Critical consult. PHYSICAL EXAMINATION: VITAL SIGNS: Temperature is 97.8, pulse 81, respiratory rate is 18, blood pressure is 147/91, saturating on room air. LAB FINDINGS: Show white count 4.9, hemoglobin 12, hematocrit 37, and platelets of 225. Chemistry; sodium was 142; potassium 3.2, replaced; chloride 104; bicarb 27; anion gap of 14; BUN is 8; creatinine 0.75; glucose 93; calcium 9.5; phosphorus 3; magnesium 1.9; total bilirubin is 1.1; AST is 18; ALT was 17. Troponins were negative. BNP was 102. Albumin was 2.7. Lipase level was 4. TSH level was 0.160. Urinalysis concerning for UTI. Flu was negative. MICROBIOLOGY: Urine culture positive for Klebsiella, pansensitive. Blood cultures were negative greater than 5 days x2. IMAGING STUDIES: Chest x-ray shows patchy opacities in the left lung suggestive of early pneumonia. CT abdomen and pelvis, findings suggestive of lingula and left lower lobe pneumonia. Small hepatic cyst. Large hiatal hernia, needs outpatient followup, which she verbalized understanding and the family. Post left hemicolectomy and hysterectomy in the past. Chest x-ray persistent patchy left lower lung opacity suggestive of pneumonia. HOSPITAL COURSE: A 73-year-old female, comes into the emergency room stating not feeling well, cough, congestion, subjective fever. The patient was found to have community-acquired pneumonia on imaging studies. Pulmonary was consulted. The patient maintained on broad-spectrum IV antibiotics. Blood cultures were negative. Urine culture was positive for Klebsiella and was pansensitive. The patient was cleared for discharge by Pulmonary. Her electrolytes were replaced prior to being discharge to home. We did discuss hiatal hernia to follow up as an outpatient and may need further workup, in which the patient and verbalized understanding and agrees to plan of care. The patient will be discharged on ora azithromycin for 2 more days and Omnicef for 7 more days to complete her treatment course. She is advised to follow up with Pulmonary in 2 weeks' time. On the day of discharge, vital signs were stable, labs reviewed and stable. The patient is seen and evaluated, examined thoroughly on the day of discharge. No other complaints. The patient verbalized understanding and agrees with plan of care to follow up accordingly as an outpatient with the primary care physician in 1 week and the director of sustainability in 2 weeks' time. MEDICATIONS: See med reconciliation form. DISPOSITION: Home. CONDITION: Stable. DIET: Heart healthy. In the event of any worsening symptoms, the patient advised to come back to the emergency room for further evaluation. Discharge summary took greater than 35 minutes. MD ADAIR Recinos/MODL /[id number]
== END 2018-10-22 15:40 | disposition home or self-care (01) | DRG 871 ==
LOC: EDBD 11:31 → ER 11:31 → ERHOLD 14:11 → MED/SURG3 17:14
PROVIDERS: ADMIT Internal Medicine; ATTEND Internal Medicine
DX: A41.9 Sepsis, unspecified organism (principal); J15.9 Unspecified bacterial pneumonia; N39.0 Urinary tract infection, site not specified; E86.0 Dehydration; I10 Essential (primary) hypertension; K21.9 Gastro-esophageal reflux disease without esophagitis; E78.5 Hyperlipidemia, unspecified; E66.9 Obesity, unspecified; E87.6 Hypokalemia; B96.1 Klebsiella pneumoniae [K. pneumoniae] as the cause of diseases classified elsewhere; Z68.27 Body mass index [BMI] 27.0-27.9, adult; Z98.0 Intestinal bypass and anastomosis status; K44.9 Diaphragmatic hernia without obstruction or gangrene
CPT/HCPCS: 36415; 71045; 74176; 80048; 80053; 81001; 82550; 82553; 83605; 83690; 83735; 83880; 84100; 84443; 84484; 85025; 87040; 87086; 87186; 87400; 93005; 94640; 96360; 99284; J0456; J0696; J1650; J2405; J2543; J7030; J7050

== ENCOUNTER 2019-11-07 09:54 | Emergency (ER) | payer MEDICARE, OTHER ==
[~2019-11-07] VITALS: Ht 162.6 cm; Wt 73.0 kg
[~2019-11-07 09:54] MED LIST changes: +AZITHROMYCIN250 MG PO; +CEFDINIR300 MG PO
[2019-11-07] MEDS ORDERED: SODIUM CHLORIDE 0.9% 500ML 500 ML IV STA (10:09)
[2019-11-07 10:37] LABS: ALANINE AMINOTRANSFERASE 42 IU/L (0-55); ALBUMIN 4.1 g/dL (3.5-5.0); ALBUMIN/GLOBULIN RATIO 1.6 (0.8-2.0); ALKALINE PHOSPHATASE 97 IU/L (40-150); ANION GAP 13.6 mmol/L (8-16); BLOOD UREA NITROGEN 10 mg/dL (7-26); BUN/CREATININE RATIO 12 (6-25); CALCIUM 9.1 mg/dL (8.4-10.2); CARBON DIOXIDE 31 mmol/L (22-29); CHLORIDE 103 mmol/L (98-107); CREATININE, SERUM 0.84 mg/dL (0.57-1.11); EST GLOMERULAR FILTRATION RATE > 60 ML/MIN (60-); GLUCOSE 91 mg/dL (74-118); POTASSIUM 3.6 mmol/L (3.5-5.1); SODIUM 144 mmol/L (136-145)
[2019-11-07 10:58] VITALS: BP 138/72
== END 2019-11-07 11:18 | disposition home or self-care (01) ==
LOC: ER 10:20
DX: G72.89 Other specified myopathies (principal); I10 Essential (primary) hypertension; E78.5 Hyperlipidemia, unspecified; Z85.72 Personal history of non-Hodgkin lymphomas
CPT/HCPCS: 36415; 80053; 82550; 99284

== ENCOUNTER 2021-01-21 11:37 | Inpatient (IN) | payer MEDICARE, OTHER ==
[~2021-01-21] VITALS: Ht 162.6 cm; Wt 73.0 kg
[2021-01-21] MEDS ORDERED: Morphine 2mg Syringe 2 MG/ML SYR IV ONE (12:30)
[2021-01-21] MEDS ORDERED: SODIUM CHLORIDE 0.9% 500ML 500 ML IV ONE (12:30)
[2021-01-21 12:57] LABS: BASOPHILS % 0.3 % (0.0-1.0); HEMATOCRIT 43.6 % (34.2-44.1); HEMOGLOBIN 14.1 g/dL (12.0-16.0); LYMPHOCYTES # (AUTO) 0.9 (1.0-3.2); LYMPHOCYTES % 9.7 % (18.0-39.1); MEAN CORPUSCULAR HEMOGLOBIN 32.6 pg (28-32); MEAN CORPUSCULAR HGB CONC 32.3 g/dL (31-35); MEAN CORPUSCULAR VOLUME 100.7 fL (81-99); MONOCYTES # (AUTO) 0.6 (0.2-0.8); MONOCYTES % 6.3 % (4.4-11.3); NEUTROPHILS # (AUTO) 8.1 (2.1-6.9); NEUTROPHILS % 83.4 % (38.7-80.0); PLATELET COUNT 248 x10e3/uL (140-360); RED BLOOD COUNT 4.33 x10e6/uL (3.6-5.1); RED CELL DISTRIBUTION WIDTH 15.1 % (11.7-14.4)
[2021-01-21 13:23] LABS: ALBUMIN 4.4 g/dL (3.5-5.0); ALBUMIN/GLOBULIN RATIO 1.4 (0.8-2.0); ANION GAP 15.9 mmol/L (8-16); CALCIUM 10.3 mg/dL (8.4-10.2); POTASSIUM 3.9 mmol/L (3.5-5.1)
[2021-01-21 13:27] LABS: CALCIUM OXALATE CRYSTALS,UR FEW (FEW); CLARITY,URINE CLEAR (CLEAR); COLOR,URINE YELLOW (YELLOW); EPITHELIAL CELLS,URINE FEW /LPF; KETONES,URINE TRACE (NEGATIVE); LEUKOCYTE ESTERASE ,URINE NEGATIVE (NEGATIVE); MUCUS,URINE FEW (RARE); NITRITE,URINE NEGATIVE (NEGATIVE); PROTEIN,URINE DIPSTICK 1+ (NEGATIVE); RBC,URINE 0-5 /HPF (0-5); URINE UROBILINOGEN 0.2 mg/dL (0.2 - 1); WBC,URINE (MAN) 0-5 /HPF (0-5)
[2021-01-21] MEDS ORDERED: ONDANSETRON HCL INJ 2MG/ML 2ML 2 MG/ML VIAL IV STA (13:30)
[2021-01-21] MEDS ORDERED: ONDANSETRON HCL INJ 2MG/ML 2ML 2 MG/ML VIAL ONE (13:35)
[2021-01-21] MEDS ORDERED: SODIUM CHLORIDE 0.9% 50ML 50 ML ONE (14:16)
[2021-01-21] MEDS ORDERED: IOPAMIDOL 370 MG/ML 200 ML INFUS..BTL INJ ONE (14:16)
[2021-01-21] MEDS ORDERED: SODIUM CHLORIDE 0.9% 1000ML 1,000 ML IV SCH (15:45)
[2021-01-21] MEDS: SODIUM CHLORIDE 0.9% 250ML IRRIG IR SCH ×3 (15:45→23:45)
[2021-01-21] MEDS ORDERED: BENZOCAINE/TETRACAINE/BUTAMBEN AERO SPRAY 56 GM CAN TOP ONE (15:45)
[2021-01-21] MEDS ORDERED: ONDANSETRON HCL INJ 2MG/ML 2ML 2 MG/ML VIAL IV PRN (15:45)
[2021-01-21] MEDS ORDERED: BENZONATATE 100 MG CAP PO PRN (16:45)
[2021-01-21] MEDS ORDERED: HYDRALAZINE HCL 20 MG/ML VIAL IV PRN (16:45)
[2021-01-21] MEDS ORDERED: DIPHENHYDRAMINE HCL 25 MG CAP PO PRN (16:45)
[2021-01-21] MEDS ORDERED: LIDOCAINE 4% PATCH TP PRN (16:45)
[2021-01-21] MEDS ORDERED: ACETAMINOPHEN 325 MG TAB PO PRN (16:45)
[2021-01-21] MEDS ORDERED: POTASSIUM CHLORIDE 20 MEQ TAB CR PO PRN (16:45)
[2021-01-21] MEDS ORDERED: DEXTROSE 50% SYRINGE 50 ML IV PRN (16:45)
[2021-01-21] MEDS ORDERED: DOCUSATE SODIUM 100 MG CAP PO PRN (16:45)
[2021-01-21] MEDS ORDERED: SIMETHICONE 80 MG CHEW PO PRN (16:45)
[2021-01-21 18:22] VITALS: BP 177/96
[2021-01-21] MEDS: DEXTROSE 5%/0.9% SOD CHL 1,000 ML IV SCH (19:16)
[2021-01-21] MEDS: ENOXAPARIN SOD INJ 40 MG/0.4 ML SYR SC SCH (19:16)
[2021-01-21 19:47] VITALS: BP 177/96
[2021-01-21 19:53] VITALS: BP 181/102
[2021-01-21 19:59] VITALS: BP 181/102
[2021-01-21] MEDS: ONDANSETRON HCL INJ 2MG/ML 2ML 2 MG/ML VIAL IV PRN (20:37)
[2021-01-21] MEDS: Morphine 2mg Syringe 2 MG/ML SYR IV PRN (20:37)
[2021-01-21] MEDS: PIPERACILLIN/TAZOBACTAM 3.375 GM in SODIUM CHLORIDE 0.9% 50ML 50 ML IV SCH (22:00)
[2021-01-22] VITALS (10 sets, daily range): BP systolic 139–178; BP diastolic 81–108
[2021-01-22] MEDS: DEXTROSE 5%/0.9% SOD CHL 1,000 ML IV SCH ×2 (02:45→12:27)
[2021-01-22] MEDS: SODIUM CHLORIDE 0.9% 250ML IRRIG IR SCH ×6 (03:45→23:45)
[2021-01-22] MEDS: PIPERACILLIN/TAZOBACTAM 3.375 GM in SODIUM CHLORIDE 0.9% 50ML 50 ML IV SCH ×3 (05:06→21:29)
[2021-01-22 05:07] LABS: BASOPHILS % 0.2 % (0.0-1.0); HEMATOCRIT 38.4 % (34.2-44.1); LYMPHOCYTES # (AUTO) 1.9 (1.0-3.2); LYMPHOCYTES % 22.8 % (18.0-39.1); MEAN CORPUSCULAR HGB CONC 33.9 g/dL (31-35); MEAN CORPUSCULAR VOLUME 97.5 fL (81-99); MONOCYTES # (AUTO) 0.9 (0.2-0.8); MONOCYTES % 10.5 % (4.4-11.3); NEUTROPHILS # (AUTO) 5.4 (2.1-6.9); NEUTROPHILS % 66.1 % (38.7-80.0); PLATELET COUNT 221 x10e3/uL (140-360); RED BLOOD COUNT 3.94 x10e6/uL (3.6-5.1)
[2021-01-22 05:42] LABS: ALBUMIN 3.5 g/dL (3.5-5.0); ALBUMIN/GLOBULIN RATIO 1.2 (0.8-2.0); ANION GAP 12.1 mmol/L (8-16); CALCIUM 8.6 mg/dL (8.4-10.2); CREATININE, SERUM 0.83 mg/dL (0.57-1.11); MAGNESIUM 1.9 MG/DL (1.3-2.1); POTASSIUM 3.1 mmol/L (3.5-5.1)
[2021-01-22] MEDS ORDERED: PANTOPRAZOLE SOD 40 MG TABEC PO SCH (07:30)
[2021-01-22] MEDS ORDERED: POTASSIUM CHLORIDE 20MEQ/100ML 200 ML IV ONE (11:30)
[2021-01-22] MEDS: Morphine 2mg Syringe 2 MG/ML SYR IV PRN ×3 (12:28→21:13)
[2021-01-22] MEDS: ENOXAPARIN SOD INJ 40 MG/0.4 ML SYR SC SCH (16:02)
[2021-01-22] MEDS: ONDANSETRON HCL INJ 2MG/ML 2ML 2 MG/ML VIAL IV PRN (21:08)
[2021-01-22] MEDS: LOSARTAN POTASSIUM 100 MG TAB PO SCH (21:22)
[2021-01-22] MEDS: MELATONIN 5 MG TABLET PO PRN (21:30)
[2021-01-23] VITALS (10 sets, daily range): BP systolic 129–147; BP diastolic 73–81
[2021-01-23] MEDS: Morphine 2mg Syringe 2 MG/ML SYR IV PRN ×4 (02:15→18:45)
[2021-01-23] MEDS: SODIUM CHLORIDE 0.9% 250ML IRRIG IR SCH ×5 (03:45→15:30)
[2021-01-23] MEDS: DEXTROSE 5%/0.9% SOD CHL 1,000 ML IV SCH ×3 (04:56→18:07)
[2021-01-23 05:01] LABS: BASOPHILS % 0.3 % (0.0-1.0); EOSINOPHILS # (AUTO) 0.1 (0.0-0.4); EOSINOPHILS % 0.7 % (0.0-6.0); HEMATOCRIT 36.2 % (34.2-44.1); MEAN CORPUSCULAR HEMOGLOBIN 32.9 pg (28-32); MEAN CORPUSCULAR HGB CONC 33.1 g/dL (31-35); MEAN CORPUSCULAR VOLUME 99.2 fL (81-99); MONOCYTES # (AUTO) 0.9 (0.2-0.8); MONOCYTES % 12.2 % (4.4-11.3); NEUTROPHILS # (AUTO) 4.1 (2.1-6.9); NEUTROPHILS % 58.5 % (38.7-80.0); PLATELET COUNT 202 x10e3/uL (140-360); RED BLOOD COUNT 3.65 x10e6/uL (3.6-5.1); RED CELL DISTRIBUTION WIDTH 15.2 % (11.7-14.4)
[2021-01-23] MEDS: PIPERACILLIN/TAZOBACTAM 3.375 GM in SODIUM CHLORIDE 0.9% 50ML 50 ML IV SCH ×3 (05:20→20:35)
[2021-01-23 05:34] LABS: ANION GAP 13.1 mmol/L (8-16); CALCIUM 7.9 mg/dL (8.4-10.2); CREATININE, SERUM 0.75 mg/dL (0.57-1.11); POTASSIUM 3.1 mmol/L (3.5-5.1)
[2021-01-23] MEDS: ONDANSETRON HCL INJ 2MG/ML 2ML 2 MG/ML VIAL IV PRN ×3 (06:21→18:45)
[2021-01-23] MEDS: LOSARTAN POTASSIUM 100 MG TAB PO SCH (09:30)
[2021-01-23] MEDS: ENOXAPARIN SOD INJ 40 MG/0.4 ML SYR SC SCH (17:35)
[2021-01-23] MEDS: MELATONIN 5 MG TABLET PO PRN (20:36)
[2021-01-24] VITALS (7 sets, daily range): BP systolic 114–153; BP diastolic 76–97
[2021-01-24] MEDS: Morphine 2mg Syringe 2 MG/ML SYR IV PRN ×2 (01:50→16:53)
[2021-01-24] MEDS: ONDANSETRON HCL INJ 2MG/ML 2ML 2 MG/ML VIAL IV PRN ×2 (01:50→16:53)
[2021-01-24] MEDS: DEXTROSE 5%/0.9% SOD CHL 1,000 ML IV SCH ×2 (04:49→20:16)
[2021-01-24] MEDS: PIPERACILLIN/TAZOBACTAM 3.375 GM in SODIUM CHLORIDE 0.9% 50ML 50 ML IV SCH ×3 (05:05→21:02)
[2021-01-24] MEDS: LOSARTAN POTASSIUM 100 MG TAB PO SCH (10:51)
[2021-01-24] MEDS: ENOXAPARIN SOD INJ 40 MG/0.4 ML SYR SC SCH (16:44)
[2021-01-24] MEDS: MELATONIN 5 MG TABLET PO PRN (21:02)
[2021-01-25 00:12] VITALS: BP 119/71
[2021-01-25] MEDS: ONDANSETRON HCL INJ 2MG/ML 2ML 2 MG/ML VIAL IV PRN ×3 (01:13→09:46)
[2021-01-25] MEDS: Morphine 2mg Syringe 2 MG/ML SYR IV PRN ×3 (01:13→09:46)
[2021-01-25 05:03] VITALS: BP 108/68
[2021-01-25] MEDS: PIPERACILLIN/TAZOBACTAM 3.375 GM in SODIUM CHLORIDE 0.9% 50ML 50 ML IV SCH ×2 (05:11→13:58)
[2021-01-25 07:45] VITALS: BP 132/71
[2021-01-25 09:00] VITALS: BP 132/71
[2021-01-25] MEDS: LOSARTAN POTASSIUM 100 MG TAB PO SCH (09:41)
[2021-01-25] MEDS: DEXTROSE 5%/0.9% SOD CHL 1,000 ML IV SCH (09:46)
[2021-01-25 11:38] VITALS: BP 147/67
[2021-01-25 15:41] VITALS: BP 140/71
== END 2021-01-25 16:40 | disposition home or self-care (01) | DRG 390 ==
LOC: ER 12:20 → ERHOLD 16:00 → MED/SURG 18:22
PROVIDERS: ADMIT Internal Medicine; ATTEND Internal Medicine
DX: K56.699 Other intestinal obstruction unspecified as to partial versus complete obstruction (principal); K52.9 Noninfective gastroenteritis and colitis, unspecified; I10 Essential (primary) hypertension; K21.9 Gastro-esophageal reflux disease without esophagitis; Z85.72 Personal history of non-Hodgkin lymphomas; Z83.3 Family history of diabetes mellitus; Z82.49 Family history of ischemic heart disease and other diseases of the circulatory system
CPT/HCPCS: 36415; 71045; 74018; 74019; 74177; 80048; 80053; 81001; 82150; 83036; 83690; 83735; 84484; 85025; 93005; 94799; 96361; 97139; 99284; J1650; J2270; J2405; J2543; J3480; J7040; J7042; Q9967; U0002